=== PATIENT | female | born 1980 | race Hispanic/Latino ===

== ENCOUNTER → 2018-05-18 | Day surgery (SDC) | payer OTHER ==
--- NOTE | 2018-05-18 11:57 | RAD REPORT ---
EXAM DESCRIPTION: US - Breast Core BX w/US Guidance - 05/18/2018 10:51 am CLINICAL HISTORY: ICD R 92.8 COMPARISON: May 13, 2018 ultrasound TECHNIQUE: The risks, benefits alternatives to the procedure were explained to the patient and infor med consent obtained. Skin and subcutaneous tissues anesthetized with lidocaine. Under sonographic guidance, four 14 gauge vacuum assisted core biopsies of the mass within the outer lower left breast obtained. 2 centimeter specimens taken. Material given to pathology. Subsequently a localizing clip was placed into the mass. Patient experienced no immediate complication IMPRESSION: Vacuum assisted core biopsies of the left breast mass
== END ==
LOC: DS 09:42
PROVIDERS: ATTEND Clinical Nurse Specialist Women's Health
DX: R92.8 Other abnormal and inconclusive findings on diagnostic imaging of breast (principal)
CPT/HCPCS: 19083; 88305

== ENCOUNTER 2022-10-08 09:04 | Emergency (ER) | payer BC ==
--- OUTSIDE RECORDS SUMMARY | 2022-10-08 09:08 | XMS REPORT | Clinical Summary ---
:1980 Author Organization [facility] MD Cerda [facility] Address [address] [place] [address] Care Team Providers Name Role Phone Melani Busch MD Primary Care Provider [phone] Kimberly Neri MD Unavailable Allergies Active Allergy Reactions Severity Noted Date Comments Duzhjia-Bgi-Luv Reductase Other (See Comments) 021 Myalgia Inhibitors Medications Medication Sig Dispensed Refills Start End Date Status Date cyclobenzaprine Take 1 tablet 5 Active (FLEXERIL) 10 mg (10 mg) by 9 tablet mouth as needed. ascorbic acid, Take 1 tablet 0 A ctive vitamin C, (VITAMIN (100 mg) by C) 100 mg tablet mouth daily. polyethylene glycol Take 17 g by 0 Active (MIRALAX) 17 g mouth as packet needed. valACYclovir Take 1 tablet 0 Act jay (VALTREX) 500 mg (500 mg) by tablet mouth as needed. loratadine Take 1 tablet 0 Activ e (CLARITIN) 10 mg (10 mg) by tablet mouth daily. Repatha SureClick Inject 140 mg 0 Active 140 mg/mL pnij under the 0 skin every 14 (fourteen) days. estradiol (ESTRACE) 0 Active 0.1 mg/g (0.01%) 1 vaginal cream cholecalciferol, Take 1 0 Act jay vitamin D3, 10 mcg capsule by (400 unit) cap mouth daily. escitalopram Take 1 tablet 0 Act jay (LEXAPRO) 10 mg (10 mg) by 2 tablet mouth daily. risedronate Take 1 tablet 0 Acti ve (ACTONEL) 150 mg (150 mg) by 2 tablet mouth every 30 (thirty) days. senna-docusate Take 1 tablet 60 tablet 0 03/28/19 D iscontinued (Senokot-S) 8.6 by mouth 0 23 (The rapy mg-50 mg twice daily. complet ed) tabletIndications: BRCA1 gene mutation positive mv,Ca,min/iron/FA/gu Take by 0 03/13/19 Discontinued reich/caff mouth. 23 (Stop Anjum ing at (ONE-A-DAY WOMEN'S D ischarge) ACTIVE ORAL) raloxifene (EVISTA) TAKE 1 TABLET 0 Discontinued 60 mg tablet BY MOUTH 1 23 (Discon tinued by EVERY DAY another clinician) PARoxetine Take 1 tablet 0 03/13/19 Disco ntinued (PAXIL-CR) 12.5 mg by mouth 2 23 ( Stop Taking at 24 hr tablet daily. 5mg Discha rge) morphine (MSIR) 15 Take 0.5 12 tablet 0 03/13/19 D iscontinued mg IR tablets (7.5 2 23 (Stop T aking at tabletIndications: mg) by mouth Discharge) Chest pain, not every 8 otherwise specified (eight) hours as needed for pain or severe pain. gabapentin Take 2 0 03/12/19 Discontin ued (NEURONTIN) 100 mg capsules by 2 23 (Discontinued by capsule mouth at another bedtime. clinician) traMADol (Ultram) 50 Take 1 tablet 10 tablet 0 03/28 Discontinued mg (50 mg) by 3 23 (Therapy tabletIndications: mouth every 6 completed) Reconstructed breast (six) hours deformity as needed for moderate pain. minocycline Take 1 10 capsule 0 08/28/19 Discont inued (MINOCIN) 100 mg capsule (100 3 23 (Therapy capsuleIndications: mg) by mouth completed) Reconstructed breast twice daily. 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 06/17 Overview: Added automatically from request for willie kasper [id number] BRCA1 gene mutation positive 07/26/2018 Encounter for examination prior to antineoplastic chem otherapy 07/21/2018 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 06/15/2018 Cancer Staging: Clinical: cT2, cN0, cM0, DE-, HER2- - Signed by Melani Busch MD on 02/04/2019 Pathologic: No Stage Recommended (ypT0, pN0(sn), cM0, ER-, DE-, HER2-) - Signed by Melani Busch MD on 02/04/2019 Encounters Date Type Specialty Care Team Description 09/26/2022 Follow-Up Breast Medical [facility], Infiltrating duct carcinoma, NOS of lower-outer quadrant of breast <Female; Left> (Primary Dx); 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 BRCA1 gene muta tion positive; Estrogen recept or negative status (ER-) 09/26/2022 Travel 08/27/2022 Follow-Up Plastic Surgery Jazmine, Acquired abs ence of bilateral breasts (Primary Dx); Harley Cervantes MD Reconstructed b reast deformity 08/27/2022 Travel 03/28/2022 Follow-Up Breast [facility], Infiltrating duct carcinoma, NOS of lower-outer quadrant of breast <Female; Left> (Primary Dx); 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 Osteoporosis; Estrogen recept or negative status (ER-) 03/28/2022 Travel 03/21/2022 Office Visit Plastic Surgery Ulices Owen Reconstructe d breast A, PA deformity 03/21/2022 Travel 03/14/2022 Telephone Surgical Oncology Fatou Roque, RN 03/13/2022 Surgery Ambulatory Surgery Jazmine, REMOVAL O F BREAST Harley Cervantes MD IMPLANT 03/13/2022 Anesthesia Event Ambulatory Surgery Jose Angel Lovell MD 03/13/2022 Hospital Encounter Ambulatory Surgery Jazmine, Rec onstructed breast Harley Cervantes MD deformity (Prim bam Dx) 03/13/2022 Travel 03/12/2022 Clinical Support Ulices Contreras Encounter f or observation for other suspected exposure to biological agent ruled out (Primary Dx); A, PA Reconstructed breast deformity Ana Araujo Monica, MA 03/12/2022 Hospital Encounter Lab Ulices Owen Reconstru cted breast A, PA deformity 03/12/2022 POEM Appointments Anesthesiology Ulices Oewn Reconstr ucted breast A, PA deformity 03/12/2022 Office Visit Plastic Surgery Cesar Luceroe monica breast Harley Cervantes MD deformity 03/12/2022 Travel 03/11/2022 Anesthesia Event Anesthesiology Ambika Orr PA 11/11/2021 Orders Only Plastic Surgery Ulices Owen PA 11/08/2021 Office Visit Plastic Surgery Jazmine BRCA1 gene m utation Harley Cervantes MD positive 11/08/2021 Prep for Surgery Plastic Surgery Ulices Owen BRCA1 ge ne mutation positive (Primary Dx); A, PA Reconstructed b reast deformity 11/08/2021 Travel 10/15/2021 Orders Only Plastic Surgery Ulices Owen BRCA1 gene m utaJENNA Burdick positive (Prima ry Dx) after 10/08/2021 Surgical History Surgery Date Site/Laterality Comments EXCISION WIDE LOCAL UPPER LIMB 02/16/2002 - Right s oft tissue mass 02/15/2003 excision inright shoulder/arm, be nign PARTIAL HYSTERECTOMY 05/17/2016 - laparoscopi c 06/15/2016 hysterectomy due to fibroids 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 DE LAPAROSCOPY W/RMVL ADNEXAL 12/16/2019 Vagina /Bilateral Procedure: LAPAROSCOPY STRUCTURES WITH REMOVAL OF ADNEXAL STRUCTURES (PART IAL OR TOTAL OOPHERECTO MY AND/OR SALPINGEC IAIN; Surgeon: Jesse thakkar MD; Location: [facility]; Service: AQUA AMMONIA OPERATOR - GYNECOLOGIC ONCO LOGY DE ESOPHAGOGASTRODUODENOSCOPY US 02/21/2020 N/A Procedure: UPPER SCOPE W/ADJ STRXRS GASTROINTESTI NAL ENDOSCOPY OF ESO PHAGUS, STOMACH, OR DUOD ENUM ANDJ ADJACENT STRUCTURES, WITH ENDOSCOPIC ULTRA SOUND EXAMINATION; Willie geon: Rosanne Ornelas i, MD; Location: MAIN ENDOSCOPY; Servi ce: GASTROENTEROLOGY DE EGD TRANSORAL BIOPSY 02/21/2020 Esophagus/N/A Procedur e: UPPER SINGLE/MULTIPLE GASTROINTESTINAL ENDOSCOPY OF ESO PHAGUS, STOMACH, AND DUO DENUM WITH BIOPSY; Willie geon: Rosanne Ornelas i, MD; Location: MAIN ENDOSCOPY; Serv ice: GASTROENTEROLOGY DE REMOVAL INTACT BREAST IMPLANT 03/13/2022 Breast/Bilatera l Procedure: REMOVAL OF BREAST IMPLANT; Surgeon: Harley Lucero MD; Loca tion: [facility]; Service : PLS - PLASTIC SURGERY Medical devices from this surgery are in the Medical Devices section. DE BREAST AUGMENTATION WITH 03/13/2022 Breast/Bilateral Pro cedure: placement of IMPLANT implant; Surgeon : Harley Lucero MD; Location: O R; Service: PLS - P LASTIC SURGERY Medical devices from this surgery are in the Medical Devices section. Medical History Medical History Date Comments Hyperlipidemia 2010 Tooth disorder 7 years ago periodontal Disease Genital herpes simplex 2011 Uterine leiomyoma 2015 s/p hysterectomy BRCA1 gene mutation positive Family History Medical History Relation Name Comments Breast cancer Maternal Aunt 1 Virginie Rivers Genetic Susceptibility to Maternal Aunt 1 Virginie Rivers BRCA1 positive Breast Cancer Breast cancer Maternal Aunt 2 Jocelyn Tinoco Genetic Susceptibility to Maternal Aunt 2 Jocelyn Tinoco BRCA1 positive Breast Cancer Breast cancer Maternal Aunt 3 Phyllis Zamanarado Pancreatic cancer Maternal Aunt 4 Zully Castro Ovarian cancer Maternal Grandmother India Paniagual Ovarian cancer Mother Shazia Duke Cancer Paternal Grandfather unknown typ e, possible prostat e Relation Name Status Comments Father Alive Maternal Aunt 1 Virginie Rivers Alive Maternal Aunt 2 Jocelyn Tinoco Alive Maternal Aunt 3 Phyllis Josue Alive Maternal Aunt 4 Zully Castro Alive Maternal Aunt 5 Alive Maternal Aunt 6 Alive Maternal Cousin 1 Alive Maternal Cousin 2 Alive Maternal Cousin 3 Alive Maternal Cousin 4 Alive Maternal Cousin 5 Alive Maternal Cousin 6 Alive Maternal Cousin 7 Alive Maternal Cousin 8 Alive Maternal Grandfather (Age 80) Maternal Grandmother India Tinoco (Age 78) Maternal Uncle 1 Alive Maternal Uncle 2 Alive Maternal Uncle 3 Alive Mother Shazia Duke (Age 61) Nephew 1 Alive Nephew 2 Alive Niece Alive Paternal Aunt Alive 4 Paternal Cousin 1 Alive Paternal Cousin 2 Alive Paternal Grandfather (Age 50) Paternal Grandmother (Age 70) Paternal Uncle Alive 3 Sister 1 Alive no children Sister 2 Alive Son Alive no children Social History Tobacco Use Types Packs/Day Years Used Date Smoking Tobacco: Never Smokeless Tobacco: Never Alcohol Use Standard Drinks/Week Comments Yes 0 (1 standard drink = 0.6 oz pure I only drink on wknds, alcohol) occasionally. Not ev haily wknd Sex Assigned at Date Recorded Female 08/05/2018 9:42 AM CDT Job Start Date Occupation Industry Not on file Not on file Not on file Obstetrics History Para Term AB IAB SAB Ectopic Multiple Living Live Births 2 1 1 Date Outcome GA Total Labor/2nd/3rd Weight Sex Delivery Anes PTL Opal A 1 A5 Name Clin Labor Para AB Comments Menarche age 10 Last menstrual period 2017 - JENISE with in tact ovaries Parity age 16 A1 Denies breast feeding, OCP, HRT Last Filed Vital Signs Vital Sign Reading Time Taken Comments Blood Pressure 109/74 09/26/2022 12:59 PM CDT Pulse 84 09/26/2022 12:59 PM CDT Temperature 36.8 C (98.2 F) 09/26/2022 12:59 PM CDT Respiratory Rate 18 09/26/2022 12:59 PM CDT Oxygen Saturation 95% 09/26/2022 12:59 PM CDT Inhaled Oxygen Concentration - - Weight 67.3 kg (148 lb 5.9 oz) 09/26/2022 12:59 PM CDT Height - - Body Mass Index 25.8 03/28/2019 8:30 AM IT OPERATIONS ANALYST Plan of Treatment Date Type Specialty Care Team Description 03/27/2023 Follow-Up Breast Medical Oncology Kinney, Sadia bustos, LOGGING EQUIPMENT MECHANIC [address], [place] [address] (Wo rk) 06/16/2023 Clinical Support Plastic Surgery Ulices Owen, PA [address] [place] [address] Latanya Robert, RN [address], [place] Health Maintenance Due Date Last Done Comments COVID-19 Vaccination (#1) 07/01/1979 Medical Devices Implanted Type Area Chain Maker Machine Device Shelf Model / Identifier Expiration Serial / Date Lot Breast Implant Scf-485 - [id number] Breast Left: ALLERGAN [place], 06/16/2026 SCF- 485 / Implanted: Qty: 1 on 03/13/2022 by Harley Lucero MD at [facility] Breast [employer]. [id number] / [id number] Explanted Type Area Chain Maker Machine Device Identifier Shelf Model / Expiration Serial / Date Lot Breast Implant Scf-385 - [id number] Breast Right: ALLERGAN [place] , [id number] 10/17/2022 SCF-385 / Implanted: Qty: 1 on 08/01/2019 by Harley Lucero MD at [facility] Breast [employer]. [id number] / Explanted: Qty: 1 on 03/13/2022 by Harley Lucero MD [id number] Procedures Procedure Name Priority Date/Time Associated Diagnosis Comme nts PATHOLOGY SURGICAL Routine 03/13/2022 7:32 Reconstructed breas t Results for this INTERPRETATION AM IT OPERATIONS ANALYST deformity procedure are in the results section. AUGMENTATION 03/13/2022 6:30 Reconstructed breast MAMMOPLASTY WITH AM IT OPERATIONS ANALYST deformity PROSTHETIC IMPLANT Special Needs VS 530 [facility] / 1x FM60 to 75 minutes for plastics. REMOVAL OF BREAST IMPLANT 03/13/2022 6:30 AM IT OPERATIONS ANALYST Reconstructed breast deformity Special Needs VS 530 [facility] / 1x FM60 to 75 minutes for plastics. COVID-19 (SARS-COV-2) Routine 03/12/2022 11:31 Encounter for R esults for this PCR - ASYMPTOMATIC - MC AM IT OPERATIONS ANALYST observation for p rocedure are in other suspected the results exposure to section. biological agent ruled out FRACTIONATED BILIRUBIN Routine 03/12/2022 11:24 Reconstructed breast Results for this AM IT OPERATIONS ANALYST deformity procedure are i n the results section. TOTAL PROTEIN Routine 03/12/2022 11:24 Reconstructed breast Re sults for this AM IT OPERATIONS ANALYST deformity procedure are i n the results section. ASPARTATE Routine 03/12/2022 11:24 Reconstructed breast Res ults for this AMINOTRANSFERASE AM IT OPERATIONS ANALYST deformity procedure a re in the results section. ALANINE AMINOTRANSFERASE Routine 03/12/2022 11:24 Reconstructe d breast Results for this AM IT OPERATIONS ANALYST deformity procedure are i n the results section. ALKALINE PHOSPHATASE Routine 03/12/2022 11:24 Reconstructed br east Results for this AM IT OPERATIONS ANALYST deformity procedure are i n the results section. ALBUMIN LEVEL Routine 03/12/2022 11:24 Reconstructed breast Re sults for this AM IT OPERATIONS ANALYST deformity procedure are i n the results section. CALCIUM LEVEL TOTAL Routine 03/12/2022 11:24 Reconstructed bing ast Results for this AM IT OPERATIONS ANALYST deformity procedure are i n the results section. .GLOMERULAR FILTRATION Routine 03/12/2022 11:24 Reconstructed breast Results for this RATE AM IT OPERATIONS ANALYST deformity procedure are i n the results section. SERUM CREATININE Routine 03/12/2022 11:24 Reconstructed breast Results for this AM IT OPERATIONS ANALYST deformity procedure are i n the results section. ELECTROLYTE PANEL Routine 03/12/2022 11:24 Reconstructed breas t Results for this AM IT OPERATIONS ANALYST deformity procedure are i n the results section. BLOOD UREA NITROGEN Routine 03/12/2022 11:24 Reconstructed bing ast Results for this AM IT OPERATIONS ANALYST deformity procedure are i n the results section. GLUCOSE LEVEL Routine 03/12/2022 11:24 Reconstructed breast Re sults for this AM IT OPERATIONS ANALYST deformity procedure are i n the results section. MANUAL DIFFERENTIAL Routine 03/12/2022 11:24 Reconstructed bing ast Results for this AM IT OPERATIONS ANALYST deformity procedure are i n the results section. Results CBC Routine 03/12/2022 11:24 Reconstructed breast Res ults for this AM IT OPERATIONS ANALYST deformity procedure are i n the results section. HEMOGLOBIN A1C Routine 03/12/2022 11:24 Reconstructed breast R esults for this AM IT OPERATIONS ANALYST deformity procedure are i n the results section. COMPREHENSIVE METABOLIC Routine 03/12/2022 11:24 Reconstructed breast PANEL AM IT OPERATIONS ANALYST deformity COMPLETE BLOOD COUNT W/ Routine 03/12/2022 11:24 Reconstructed breast DIFFERENTIAL AM IT OPERATIONS ANALYST deformity after 10/08/2021 Results Pathology Surgical Interpretation (03/13/2022 7:32 AM IT OPERATIONS ANALYST) Component Value Ref Test Analysis Performed Pathologis t Range Method Time At Signature Submitted Reconstructed 03/14/2022 [facility] Clinical breast deformity 12:07 PM History [N65.0] IT OPERATIONS ANALYST Diagnosis A. Right breast, mastectomy skin scar, excision: 03/14/2022 [facility] Electronically No evidence of malignancy. 12:07 PM signed by Kathie Skin with scar and underlyin g fibroconnective tissue consistent with implant capsule. IT OPERATIONS ANALYST MD vivian Cuellar n B. Left breast, mastectomy skin scar, excision: 03/14/2022 at Skin with scar, no tumor present. 12:06 PM C. 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 D. Right breast, implant, removal: Implant (biomedical engineering supervisor), gross diagnosis only. Gross A: 03/14/2022 [facility] Description Breast, right, mastectomy sk in scar - permanent: A 5.4 x 1.2 x 0.4 cm portion of to, grossly unremarkable, unoriented skin with underlying capsule. No masses or lesions are identified grossly. Represen 12:07 PM tative sections are submitted in cassette A1. JLA IT OPERATIONS ANALYST Cold Ischemia and Fixation Times Meet requirements specified in latest version of the ASCO/CA P guidelines Cold ischemia time: 34m 52s Fixative: 10% Neutral Buffered Formalin In fixative: 03/13/2022 8:06 AM Fixation time: > 6 hours and < 72 hours B: Breast, left, mastectomy ski n scar - permanent: A 3.5 x 0.4 x 0.2 cm portion of to, unoriented, grossly unremarkable skin. The specimen is bisected and entirely submitted in cassette B1. JLA Cold Ischemia and Fixation Times Meet requirements specified in latest version of the ASCO/CA P guidelines Cold ischemia time: 33m 58s Fixative: 10% Neutral Buffered Formalin In fixative: 03/13/2022 8:06 AM Fixation time: > 6 hours and < 72 hours C: Breast, left, implant, - lashell ss id only: A 13.0 x 13.0 x 4.5 cm ovoid, semitranslucent implant with a smooth dry surface and viscous translucent contents. The inscription is style SCF LOT [id number] Allerga n 385 cc. No gross ruptures or adherent tissue, is identified grossly. Photographs are taken. Gross only. JLA D: Breast, right breast implant - gross id only: A 13.0 x 13.0 x 4.5 cm ovoid, semitranslucent implant with a smooth dry surface and viscous translucent contents. The inscription is style SCF LOT [id number] A llergan 385 cc. No gross rup tures or adherent tissue, is identified grossly. Photographs are taken. Gross only. JLA Biomarker N/A 03/14/2022 [facility] Block(s) 12:07 PM IT OPERATIONS ANALYST Disclaimer "Some tests 03/14/2022 [facility] reported here may 12:07 PM have been IT OPERATIONS ANALYST developed and performance characteristics determined by [facility] Pathology and Laboratory Medicine. These tests have not been specifically cleared or approved by the U.S. Food and Drug Administration. If applicable, controls were reviewed and showed appropriate reactivity." Specimen Anatomical Collection Method Collection Time Receive d Time (Source) Location / / Volume Laterality Tissue (Breast, 03/13/2022 7:32 AM 2022 8:06 Right) IT OPERATIONS ANALYST AM IT OPERATIONS ANALYST Tissue (Breast, 03/13/2022 7:33 AM 2022 8:06 Left) IT OPERATIONS ANALYST AM IT OPERATIONS ANALYST Tissue (Breast, 03/13/2022 7:59 AM 2022 8:06 Left, Implant) IT OPERATIONS ANALYST AM IT OPERATIONS ANALYST Tissue (Breast, 03/13/2022 8:00 AM 2022 8:06 Right, Implant) IT OPERATIONS ANALYST AM IT OPERATIONS ANALYST Harley Lucero MD LAB PATHOLOGY ORDERABLES Performing Organization Address City/State/ZIP Code Phon e Number [facility] [place] [address] [address] COVID-19 (SARS-CoV-2) PCR-Asymptomatic [facility] (03/12/2022 11:31 AM IT OPERATIONS ANALYST) [facility] Method Time Signature COVID19 (SARS Not Detected Not Detected [place] CoV-2) [facility] Comment: This test is a qualitative reverse-trans criptase polymerase chain reaction (RT- PCR) developed for the Robina DOUG 6800 system and intended for qualitative detection of SARS CoV-2 RNA in nasopharyngeal a nd oropharyngeal swab specimens collecte d from any individuals, including those suspected o f COVID-19 by their healthcare provider, and those without symptoms or other reasons to suspect COVID-19. A fact sheet for patients provided by the cat skinner ( [employer]) can be rev iewed at: https://www.fda.gov/media/849199/leticia dooley A fact sheet for Health Care providers is provided by the cat skinner ([employer]) and can be reviewed at: https://www.fda.gov/media/236413/download Results must be interpreted within the c ontext of all relevant clinical and laboratory findings and should not form the sole basis for a diagnosis or treatment decision. Positive results do not rule out bacterial infection or co- infection with other viruses. Negative results do not rule ou t SARS-CoV-2 and must be combined with clinical observations, patient history, and/or epidemiological information. "Presumptive Positive" results are due t o partial amplification of SARS-CoV-2 targets and indicates low amounts of virus present in the specimen at or near the limit of detection. Regardless, individuals with "Presumptive Positive" results should be managed per institutional guidelines as individuals positive for SARS-CoV-2 virus, including use of appropriate infection control protocols. Internal controls are included to assess for possible amplification inhibitors. If inhibition is detected, testing is repeated and if inhibition is confirmed the specimen is resulted as "Invalid". When an "Invalid" result occurs, it is recomm ended to wait 3 days before submitting a new spec imen for testing if clinically indicated. This assay has been approved by the FDA for use only under Emergency Use Authorization (EUA) in laboratories that have been CLIA-certified to perform moderate-complexity and high-complexity tests. The performance characteristics of this assay were verified by the Microbiology Laboratory at [facility], CLIA Accreditation #: [id number] and CAP Accreditation #: [id number]. COVID19 SARS Source PROOF MACHINE OPERATOR Swab [place] MD [facility] COVID19 SARS Indication Pre-OR Procedure [facility] Specimen (Source) Anatomical Collection Method Collection Time Re ceived Time Location / / Volume Laterality Nasopharyngeal Swab 03/12/2022 11:31 02/17 AM IT OPERATIONS ANALYST 3:33 PM IT OPERATIONS ANALYST Harley Lucero MD MICROBIOLOGY - GENERAL ORDER MARIA Performing Organization Address City/State/ZIP Code Phon e Number [facility] Unless otherwise noted, [place] [address] [place] all lab tests performed by: Division of Pathology and Laboratory Medicine [address] [place] [address] .Serum Creatinine (03/12/2022 11:24 AM IT OPERATIONS ANALYST) athologist Signature Creatinine 0.68 0.51 - 0.95 [facility] mg/dL Comment: [facility] Performed [facility] [address], [address], [place] [address] Specimen Anatomical Collection Method Collection Time Receive d Time (Source) Location / / Volume Laterality Blood 03/12/2022 11:24 03/12/2022 AM IT OPERATIONS ANALYST 11:52 AM IT OPERATIONS ANALYST [facility]es [facility] BLOOD ORDERABLES Performing Organization Address City/State/ZIP Code Phon e Number [address] [place] [address] [address] (ABNORMAL) .CBC (03/12/2022 11:24 AM IT OPERATIONS ANALYST) athologist Signature WBC 5.3 4.0 - 11.0 [facility] K/uL RBC 5.25 4.00 - 5.50 [facility] M/uL Hgb 13.4 12.0 - 16.0 [facility] gm/dL Comment: As part of CBC or as an individ ual orderable testing performed at [facility], [facility] , [address], [place] [address] Hct 43.1 37.0 - 47.0 % [facility] Comment: As part of CBC or as an individ ual orderable testing performed at [facility], [address] , [address], [place] [address] MCV 82 82 - 98 fL [facility] MCH 25.5 (L) 27.0 - 31.0 pg [facility] MCHC 31.1 31.0 - 36.0 gm/dL [facility] RDW-SD 43.3 35.1 - 46.3 fL [facility] RDW-CV 14.6 12.0 - 15.5 % [facility] Platelet count 218 140 - 440 K/uL [facility] Comment: As part of CBC or as an individ ual orderable testing performed at [facility], [address] [facility] , [address], [place] [address] MPV 12.1 (H) 4.0 - 10.4 fL [facility] INRBC 0.0 <=0.0 % [facility] Comment: The INRBC (instrument NRBC) value reflec ts the enumeration of nucleated red blood cells contained i n a 200uL sample of whole blood analyzed by the instrumen t. This value may differ from the NRBC value reported in a manual differential, which is based on a 100 cell differentia l. As part of CBC testing performed at [facility] [employer] [facility] [address] [facility], [address], [place] [address] Specimen Anatomical Collection Method Collection Time Receive d Time (Source) Location / / Volume Laterality Blood 03/12/2022 11:24 03/12/2022 AM IT OPERATIONS ANALYST 11:28 AM IT OPERATIONS ANALYST [facility] BLOOD ORDERABLES Performing Organization Address City/State/ZIP Code Phon e Number [address] [place] [address] [address] Glomerular Filtration Rate (03/12/2022 11:24 AM IT OPERATIONS ANALYST) P athologist Signature eGFR 111 >=60 [facility] mL/min/1.73 sq. m Comment: The eGFRcr is calculated with the 2020 KD-EPI creatinine equation using creatinine, patient's age, and sex for adults 18 years of age and older. Other factors, especially muscle mass, may affect accuracy and need to be considered. According to the Kidney Disease: Improvi ng Global Outcomes (KDIGO) CKD Work Group 2012 Clinical Practice Guideline, chronic kidney disease (CKD) is defined as the abnormalities of kidney structure or function, present for more than 3 months, with implications for health. CKD should be c lassified by cause, GFR category, and albuminuria category. KDIGO guidelines provide the following GFR categories Stage Description GFR mL/min/1.73 m2 G1* Normal or high >= 90 G2* Mildly decreased 60-89 G3a Mildly to moderately decreased 45-59 G3b Moderately to severely decreased 30- 44 G4 Severely decreased 15-29 G5 Kidney failure <15 *In the absence of evidence of kidney da mage, neither G1 nor G2 fulfill criteria for CKD. Testing Performed at [facility], [address] [facility] [address], [address], [place] [address] Specimen Anatomical Collection Method Collection Time Receive d Time (Source) Location / / Volume Laterality Blood 03/12/2022 11:24 03/12/2022 AM IT OPERATIONS ANALYST 11:52 AM IT OPERATIONS ANALYST [facility] BLOOD ORDERABLES Performing Organization Address [facility]/ZIP Code Phon e Number [facility] [address] [facility] [place] [address] [address] Fractionated Bilirubin (03/12/2022 11:24 AM IT OPERATIONS ANALYST) athologist Signature Bili Total 0.3 <=1.2 mg/dL [facility] Comment: Indocyanine Green (ICG) may cause falsel y elevated bilirubin results. Total and direct bilirubin must not be measured from samples containing indocyanine green. False elevation of total bilirubin can b e seen in patients with IgG concentrations above 28 g/L. Testing Performed at [facility], [address] [place] [address], [address], [place] [address] Bili Direct <0.2 <=0.3 mg/dL [facility] Comment: Indocyanine Green (ICG) may cause falsel y elevated bilirubin results. Total and direct bilirubin must not be measured from samples containing indocyanine green. Testing Performed at [facility], [facility] [facility], [address], [place] [address] Bili Indirect See Note 0.0 - 0.9 mg/dL [facility] Comment: Unable to calculate Indirect Bilirubin r esult due to some parameters are outside reportable range Testing Performed at [facility], [address] [facility], [address], [place] [address] Specimen Anatomical Collection Method Collection Time Receive d Time (Source) Location / / Volume Laterality Blood 03/12/2022 11:24 03/12/2022 AM IT OPERATIONS ANALYST 11:52 AM IT OPERATIONS ANALYST [facility] BLOOD ORDERABLES Performing Organization Address [facility]/ZIP Code Phon e Number [facility] [address] [facility] [place] [address] [address] (ABNORMAL) Differential (03/12/2022 11:24 AM IT OPERATIONS ANALYST) athologist Signature Neutrophil % 60.0 42.0 - 66.0 [facility] % Comment: As part of Differential perform ed at [facility], [address] [place] [address], [address], [place] [address] Lymphocyte % 29.1 24.0 - 44.0 % [facility] Monocyte % 7.4 (H) 2.0 - 7.0 % [facility] Eosinophil % 1.9 1.0 - 4.0 % [facility] Basophil % 1.0 0.0 - 1.0 % [facility] IGRE % 0.6 (H) 0.0 - 0.4 % [facility] Comment: IGRE % count includes Metamyelocytes, My elocytes, and Promyelocytes. As part of Differential performed at [facility], [address] [place] [address], [address], [place] [address] Neutrophil Abs 3.15 1.70 - 7.30 K/uL [facility] Lymphocyte Abs 1.53 1.00 - 4.80 K/uL [facility] Monocyte Abs 0.39 0.08 - 0.70 K/uL [facility] Eosinophil Abs 0.10 0.04 - 0.40 K/uL [facility] Basophil Abs 0.05 0.00 - 0.10 K/uL [facility] IG Abs 0.03 0.00 - 0.04 K/uL [facility] Specimen Anatomical Collection Method Collection Time Receive d Time (Source) Location / / Volume Laterality Blood 03/12/2022 11:24 03/12/2022 AM IT OPERATIONS ANALYST 11:28 AM IT OPERATIONS ANALYST [facility] BLOOD ORDERABLES Performing Organization Address City/[facility]/ZIP Code [facility] e Number [address] [place] [address] [address] BUN (03/12/2022 11:24 AM IT OPERATIONS ANALYST) P athologist Signature BUN 13 6 - 23 mg/dL [facility] Comment: Testing Performed at [facility], [address] [place] [address], [address], [place] [address] Specimen Anatomical Collection Method Collection Time Receive d Time (Source) Location / / Volume Laterality Blood 03/12/2022 11:24 03/12/2022 AM IT OPERATIONS ANALYST 11:52 AM IT OPERATIONS ANALYST [facility] BLOOD ORDERABLES Performing Organization Address City/[facility]/ZIP Code Phon e Number [address] [place] [address] [address] ALT (03/12/2022 11:24 AM IT OPERATIONS ANALYST) athologist Signature ALT 25 <=33 U/L [facility] Comment: Testing Performed at [facility], [address] [facility] [address], [address], [place] [address] Specimen Anatomical Collection Method Collection Time Receive d Time (Source) Location / / Volume Laterality Blood 03/12/2022 11:24 03/12/2022 AM IT OPERATIONS ANALYST 11:52 AM IT OPERATIONS ANALYST Ulices Owen PA LAB BLOOD ORDERABLES Performing Organization Address City/[facility]/ZIP Code Phon e Number [facility] [address] [facility] [place] [address] [address] Aspartate Aminotransferase (03/12/2022 11:24 AM IT OPERATIONS ANALYST) athologist Signature AST 24 <=32 U/L [facility] Comment: Testing Performed at [facility], [address] [facility], [address], [place] [address] Specimen Anatomical Collection Method Collection Time Receive d Time (Source) Location / / Volume Laterality Blood 03/12/2022 11:24 03/12/2022 AM IT OPERATIONS ANALYST 11:52 AM IT OPERATIONS ANALYST Ulices Owen PA LAB BLOOD ORDERABLES Performing Organization Address [facility]/ZIP Code Phon e Number [facility] [address] [facility] [place] [address] [address] Total Protein (03/12/2022 11:24 AM IT OPERATIONS ANALYST) athologist Signature Total Protein 8.2 6.4 - 8.3 [facility] g/dL Comment: Testing Performed at [facility], [address] [facility], [address], [place] [address] Specimen Anatomical Collection Method Collection Time Receive d Time (Source) Location / / Volume Laterality Blood 03/12/2022 11:24 03/12/2022 AM IT OPERATIONS ANALYST 11:52 AM IT OPERATIONS ANALYST Ulices Owen PA LAB BLOOD ORDERABLES Performing Organization Address City/[facility]/ZIP Code Phon e Number [facility] [address] [facility] [place] [address] [address] (ABNORMAL) Alkaline Phosphatase (03/12/2022 11:24 AM IT OPERATIONS ANALYST) athologist Signature Alk Phos 120 (H) 35 - 104 [facility] U/L Comment: Testing Performed at [facility], [address] [place] [address], [address], [place] [address] Specimen Anatomical Collection Method Collection Time Receive d Time (Source) Location / / Volume Laterality Blood 03/12/2022 11:24 03/12/2022 AM IT OPERATIONS ANALYST 11:52 AM IT OPERATIONS ANALYST [facility] BLOOD ORDERABLES Performing Organization Address City/State/ZIP Code Phon e Number [facility] [address] [place] [address]. [place] [address] [address] (ABNORMAL) Hemoglobin A1c (03/12/2022 11:24 AM IT OPERATIONS ANALYST) athologist Signature A1C 5.8 (H) 4.3 - 5.6 % [facility] Comment: HbA1c values >=6.5% are diagnostic of di abetes mellitus. Diagnosis should be confirmed by repeat testing. Therapeutic Action suggested: >8.0% HbA1 c; Goal of therapy: <7.0% HbA1c Specimen Anatomical Collection Method Collection Time Receive d Time (Source) Location / / Volume Laterality Blood 03/12/2022 11:24 03/12/2022 AM IT OPERATIONS ANALYST 12:06 PM IT OPERATIONS ANALYST [facility] BLOOD ORDERABLES Performing Organization Address City/State/ZIP Code Phon e Number [facility] Unless otherwise noted, [place] [address] CENTER all lab tests performed by: Division of Pathology and Laboratory Medicine [address] [place] [address] Glucose Level (03/12/2022 11:24 AM IT OPERATIONS ANALYST) athologist Signature Glucose Level 99 70 - 99 [facility] mg/dL Comment: Effective 09/12/15, the glucose reference intervals have been updated based on [place] [employer] guidelines (Standards of Medical Care in Diabetes 2016. Diabetes Care 2016; 39: S13-S22). Fasting blood glucose: Normal: 70-99 mg/dL Impaired fasting glucose (increased risk for diabetes or pre-diabetes): 100- 125 mg/dL Diabetes mellitus: >/=126 mg/dL Random blood glucose: Normal: 70-199 mg/dL Note: Random glucose >100 mg/dL is assoc iated with increased risk for diabetes Testing Performed at [facility] [employer] [facility], [address] [facility], [address], [place] [address] Specimen Anatomical Collection Method Collection Time Receive d Time (Source) Location / / Volume Laterality Blood 03/12/2022 11:24 03/12/2022 AM IT OPERATIONS ANALYST 11:52 AM IT OPERATIONS ANALYST Ulices Owen PA LAB BLOOD ORDERABLES Performing Organization Address City/[facility]/ZIP Code Phon e Number [facility] [address] [facility] [place] [address] [address] Calcium Level (03/12/2022 11:24 AM IT OPERATIONS ANALYST) P athologist Signature Calcium Lvl 10.2 8.4 - 10.2 [facility] mg/dL Comment: Testing Performed at [facility], [address] [facility], [address], [place] [address] Specimen Anatomical Collection Method Collection Time Receive d Time (Source) Location / / Volume Laterality Blood 03/12/2022 11:24 03/12/2022 AM IT OPERATIONS ANALYST 11:52 AM IT OPERATIONS ANALYST Ulices Owen PA LAB BLOOD ORDERABLES Performing Organization Address [facility]/ZIP Code Phon e Number [facility] [address] [facility] [place] [address] [address] Albumin Level (03/12/2022 11:24 AM IT OPERATIONS ANALYST) P athologist Signature Albumin Lvl 4.9 3.5 - 5.2 [facility] gm/dL Comment: Testing Performed at [facility], [address] [facility], [address], [place] [id number] Specimen Anatomical Collection Method Collection Time Receive d Time (Source) Location / / Volume Laterality Blood 03/12/2022 11:24 03/12/2022 AM IT OPERATIONS ANALYST 11:52 AM IT OPERATIONS ANALYST Ulices Owen PA LAB BLOOD ORDERABLES Performing Organization Address City/[facility]/ZIP Code Phon e Number [facility] [address] [facility] [place] [address] [address] Electrolyte Panel (03/12/2022 11:24 AM IT OPERATIONS ANALYST) P athologist Signature Sodium Lvl 141 136 - 145 [facility] mEq/L Comment: Testing Performed at [facility], [address], [address], [place] [address] Potassium Lvl 3.9 3.5 - 5.1 mEq/L [facility] Comment: Testing Performed at [facility], [address], [address], [place] [address] Chloride 101 98 - 107 mEq/L [facility] Comment: Testing Performed at [facility], [address], [address], [place] [address] CO2 29 22 - 29 mEq/L [facility] Comment: Testing Performed at [facility], [address], [address], [place] [address] Anion Gap 11 4 - 14 mEq/L [facility] Comment: Testing Performed at [facility], [address], [address], [place] [address] Specimen Anatomical Collection Method Collection Time Receive d Time (Source) Location / / Volume Laterality Blood 03/12/2022 11:24 03/12/2022 AM IT OPERATIONS ANALYST 11:52 AM IT OPERATIONS ANALYST [facility] BLOOD ORDERABLES Performing Organization Address City/State/ZIP Code Phon e Number [facility] [address] 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
--- OUTSIDE RECORDS SUMMARY | 2022-10-08 09:10 | XMS REPORT | Continuity of Care Document ---
:1980 Author Organization [facility] t Address [address] [facility] [address] [place] [id number] Care Team Providers Name Role Phone Jose Yeager MD, Thomas Richard Primary Care Physician [phone] SYSTEM, PROVIDER NOT IN Attending Clinician Unavailable KinneyMel garcia APRN Attending Clinician MEL KINNEY Attending Clinician Unavailable Harley Lucero MD Attending Clinician HARLEY LUCERO Attending Clinician Unavailable Ulices Cardoso Attending Clinician ULICES CAR Attending Clinician Unavailable Fatou Roque RN Attending Clinician Unavailable Jose Angel Lovell MD Attending Clinician Ana Araujo MA Attending Clinician Unavailable Ambika Fagan Attending Clinician ISADORA CHAUDHRY Attending Clinician Unavailable NORM VARGAS Attending Clinician Unavailable DIANA TERRY Attending Clinician Unavailable DIANA GARCIA Attending Clinician Unavailable NIKO LLOYD Attending Clinician Unavailable KING KARIMI Attending Clinician Unavailable ARCELIA NOLASCO Attending Clinician Unavailable ABDIRASHID PERSAUD Attending Clinician Unavailable HARLEY LUCERO Admitting Clinician Unavailable Payers Payer Name Policy Type Policy Number Effective Date Expiration Date Jeffrey [facility] [id number] 2020 00:00:00 CAITLYN O POS [id number] 2018 00:00:00 OPEN ACCESS Problems Condition Condition Condition Status Onset Resolution Last Treating Co mments Source Name Details Category Date Date Treatment Clinician Date Reconstruc Reconstruc Disease Active Overview : Univers jt breast jt breast 11-08 Formattin ity of deformity deformity 00:00: [place] 00 note MD might be Anders[place] different n from the Cancer original. Center Added automatic ally from request for surgery [id number] Chronic Chronic Disease Active 2020-[address] [facility] low back low back 0-04 [facility] pain pain 00:00: Medical without without 00 Center sciatica, sciatica, unspecifie unspecifie d back d back pain pain laterality laterality Chronic Chronic Disease Active 2020-[address] [facility] right right 0-04 [facility] shoulder shoulder 00:00: Medica l pain pain 00 Center Chronic Chronic Disease Active 2020-[address] [facility] left left 0-04 [facility] shoulder shoulder 00:00: Medica l pain pain 00 Center Limited Limited Disease Active 2020-[address] [facility] range of range of 0-04 [facility] motion motion 00:00: Medical (ROM) of (ROM) of 00 Center shoulder shoulder Hot Hot Disease Active 2020-[address] [facility] flashes flashes 0-04 [facility] 00:00: Medical 00 Center Osteoporos Osteoporos Disease Active 2020-[address] is, is, 0-04 [facility] unspecifie unspecifie 00:00: Me dical d d 00 Center osteoporos osteoporos is type, is type, unspecifie unspecifie d d pathologic pathologic al al fracture fracture presence presence History of History of Disease Active 2020-[address] breast breast 0-04 [facility] cancer cancer 00:00: Medical 00 Center History of History of Disease Active 2020-[address] bilateral bilateral 0-04 [facility] s mastectomy mastectomy 00:00: Me dical 00 Center BRCA BRCA Disease Active 2020-[address] [facility] positive positive 0-04 [facility] 00:00: Medical 00 Center Pain in Pain in Disease Active 2020-[address] [facility] both lower both lower 0-04 Bhargavi kes extremitie extremitie 00:00: Me dical s s 00 Center S/P S/P Disease Active 2020-[address] [facility] JENISE-BSO JENISE-BSO 0-04 [facility] 00:[facility]: Medical 00 Center Screening Screening Disease Active 2020-[address] [facility] for for 0-04 [facility] depression depression 00:00: Me dical 00 Center Mixed Mixed Disease Active 2020-[address] [facility] hyperlipid hyperlipid 0-04 Bhargavi kes emia emia 00:00: Medical 00 Center Genetic Genetic Disease Active 2019-02 Univers susceptibi susceptibi 0-05 it y of lity to lity to 00:00: [place] other other 00 MD malignant malignant [place] neoplasm neoplasm n Cancer Center Family Family Disease Active 2019-02 Univers history of history of 0-05 [place] of malignant malignant [place] 00 of of [place] pancreas pancreas n Cancer Center 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 Center Added automatic ally from request for surgery [id number] BRCA1 gene BRCA1 gene Disease Active U nivers mutation mutation 6-10 ity of positive positive 00:00: [place] 00 MD [facility] Encounter Encounter Disease Active Uni vers for for 6-05 ity of examinatio examin[place] prior to n prior to 00 antineopla antineopla An derso stic stic n chemothera chemothera Ca ncer py py Center Infiltrati Infiltrati Disease Active U nivers ng duct ng duct 4-30 ity of carcinoma carcinoma 00[place]00[place] of lower of lower 00 outer outer Anderso quadrant quadrant n of left of left Cancer female female Center breast breast Allergies, Adverse Reactions, Alerts Allergy Allergy Status Severity Reaction(s) Onset Inactive Treating Comm ents Source Name Type Date Date Clinician STATINS- Drug Active Other 2020-02 MD [facility]G-COA Class 0-04 Anderso REDUCTAS 00:00: n E 00 INHIBITO RS STATINS- Drug Active Other 2020-02 MD [facility]G-COA Class 0-04 Anderso REDUCTAS 00:00: n E 00 INHIBITO RS STATINS- Drug Active Other 2020-02 MD [facility]G-COA Class 0-04 Anderso REDUCTAS 00:00: n E 00 INHIBITO RS STATINS- Drug Active Other 2020-02 MD HMG-COA Class 0-04 Anderso REDUCTAS 00:00: n E 00 INHIBITO RS STATINS- Drug Active Other 2020-02 MD HMG-COA Class 0-04 Anderso REDUCTAS 00:00: n E 00 INHIBITO RS STATINS- Drug Active Other 2020-02 MD [facility]G-COA Class 0-04 Anderso REDUCTAS 00:00: n E 00 INHIBITO RS STATINS- Drug Active Other 2020-02 MD HMG-COA Class 0-04 Anderso REDUCTAS 00:00: n E 00 INHIBITO RS STATINS- Drug Active Other 2020-02 MD HMG-COA Class 0-04 Anderso REDUCTAS 00:00: n E 00 INHIBITO RS STATINS- Drug Active Other 2020-02 MD HMG-COA Class 0-04 Anderso REDUCTAS 00:00: n E 00 INHIBITO RS STATINS- Drug Active Other 2020-02 MD HMG-COA Class 0-04 Anderso REDUCTAS 00:00: n E 00 INHIBITO RS STATINS- Drug Active Other 2020-02 MD HMG-COA Class 0-04 Anderso REDUCTAS 00:00: n E 00 INHIBITO RS STATINS- Drug Active Other 2020-02 MD [facility]G-COA Class 0-04 Anderso REDUCTAS 00:00: n E 00 INHIBITO RS STATINS- Drug Active Other 2020-02 MD HMG-COA Class 0-04 Anderso REDUCTAS 00:00: n E 00 INHIBITO RS STATINS- Drug Active Other 2020-02 MD HMG-COA Class 0-04 Anderso REDUCTAS 00:00: n E 00 INHIBITO RS STATINS- Drug Active Other 2020-02 MD HMG-COA Class 0-04 Anderso REDUCTAS 00:00: n E 00 INHIBITO RS STATINS- Drug Active Other 2020-02 MD HMG-COA Class 0-04 Anderso REDUCTAS 00:00: n E 00 INHIBITO RS STATINS- Drug Active Other 2020-02 MD HMG-COA Class 0-04 Anderso REDUCTAS 00:00: n E 00 INHIBITO RS STATINS- Drug Active Other 2020-02 MD HMG-COA Class 0-04 Anderso REDUCTAS 00:00: n E 00 INHIBITO RS STATINS- Drug Active Other 2020-02 MD HMG-COA Class 0-04 Anderso REDUCTAS 00:00: n E 00 INHIBITO RS STATINS- Drug Active Other 2020-02 MD HMG-COA Class 0-04 Anderso REDUCTAS 00:00: n E 00 INHIBITO RS STATINS- Drug Active Other 2020-02 MD HMG-COA Class 0-04 Anderso REDUCTAS 00:00: n E 00 INHIBITO RS STATINS- Drug Active Other 2020-02 MD HMG-COA Class 0-04 Anderso REDUCTAS 00:00: n E 00 INHIBITO RS STATINS- Drug Active Other 2020-02 MD HMG-COA Class 0-04 Anderso REDUCTAS 00:00: n E 00 INHIBITO RS STATINS- Drug Active Other 2020-02 MD HMG-COA Class 0-04 Anderso REDUCTAS 00:00: n E 00 INHIBITO RS STATINS- Drug Active Other 2020-02 MD HMG-COA Class 0-04 Anderso REDUCTAS 00:00: n E 00 INHIBITO RS STATINS- Drug Active Other 2020-02 MD HMG-COA Class 0-04 Anderso REDUCTAS 00:00: n E 00 INHIBITO RS STATINS- Drug Active Other 2020-02 MD HMG-COA Class 0-04 Anderso REDUCTAS 00:00: n E 00 INHIBITO RS STATINS- Drug Active Other 2020-02 MD HMG-COA Class 0-04 Anderso REDUCTAS 00:00: n E 00 INHIBITO RS STATINS- Drug Active Other 2020-02 MD HMG-COA Class 0-04 Anderso REDUCTAS 00:00: n E 00 INHIBITO RS STATINS- Drug Active Other 2020-02 MD HMG-COA Class 0-04 Anderso REDUCTAS 00:00: n E 00 INHIBITO RS STATINS- Drug Active Other 2020-02 MD HMG-COA Class 0-04 Anderso REDUCTAS 00:00: n E 00 INHIBITO RS STATINS- Drug Active Other 2020-02 MD HMG-COA Class 0-04 Anderso REDUCTAS 00:00: n E 00 INHIBITO RS STATINS- Drug Active Other 2020-02 MD HMG-COA Class 0-04 Anderso REDUCTAS 00:00: n E 00 INHIBITO RS STATINS- Drug Active Other 2020-02 MD HMG-COA Class 0-04 Anderso REDUCTAS 00:00: n E 00 INHIBITO RS STATINS- Drug Active Other 2020-02 MD HMG-COA Class 0-04 Anderso REDUCTAS 00:00: n E 00 INHIBITO RS STATINS- Drug Active Other 2020-02 MD HMG-COA Class 0-04 Anderso REDUCTAS 00:00: n E 00 INHIBITO RS STATINS- Drug Active Other 2020-02 MD HMG-COA Class 0-04 Anderso REDUCTAS 00:00: n E 00 INHIBITO RS STATINS- Drug Active Other 2020-02 MD HMG-COA Class 0-04 Anderso REDUCTAS 00:00: n E 00 INHIBITO RS STATINS- Drug Active Other 2020-02 MD HMG-COA Class 0-04 Anderso REDUCTAS 00:00: n E 00 INHIBITO RS STATINS- Drug Active Other 2020-02 MD HMG-COA Class 0-04 Anderso REDUCTAS 00:00: n E 00 INHIBITO RS STATINS- Drug Active Other 2020-02 MD HMG-COA Class 0-04 Anderso REDUCTAS 00:00: n E 00 INHIBITO RS STATINS- Drug Active Other 2020-02 MD HMG-COA Class 0-04 Anderso REDUCTAS 00:00: n E 00 INHIBITO RS STATINS- Drug Active Other 2020-02 MD HMG-COA Class 0-04 Anderso REDUCTAS 00:00: n E 00 INHIBITO RS STATINS- Drug Active Other 2020-02 MD HMG-COA Class 0-04 Anderso REDUCTAS 00:00: n E 00 INHIBITO RS STATINS- Drug Active Other 2020-02 MD HMG-COA Class 0-04 Anderso REDUCTAS 00:00: n E 00 INHIBITO RS STATINS- Drug Active Other 2020-02 MD HMG-COA Class 0-04 Anderso REDUCTAS 00:00: n E 00 INHIBITO RS STATINS- Drug Active Other 2020-02 MD HMG-COA Class 0-04 Anderso REDUCTAS 00:00: n E 00 INHIBITO RS STATINS- Drug Active Other 2020-02 MD HMG-COA Class 0-04 Anderso REDUCTAS 00:00: n E 00 INHIBITO RS STATINS- Drug Active Other 2020-02 MD HMG-COA Class 0-04 Anderso REDUCTAS 00:00: n E 00 INHIBITO RS STATINS- Drug Active Other 2020-02 MD HMG-COA Class 0-04 Anderso REDUCTAS 00:00: n E 00 INHIBITO RS STATINS- Drug Active Other 2020-02 MD HMG-COA Class 0-04 Anderso REDUCTAS 00:00: n E 00 INHIBITO RS STATINS- Drug Active Other 2020-02 MD HMG-COA Class 0-04 Anderso REDUCTAS 00:00: n E 00 INHIBITO RS STATINS- Drug Active Other 2020-02 MD HMG-COA Class 0-04 Anderso REDUCTAS 00:00: n E 00 INHIBITO RS STATINS- Drug Active Other 2020-02 MD HMG-COA Class 0-04 Anderso REDUCTAS 00:00: n E 00 INHIBITO RS STATINS- Drug Active Other 2020-02 MD HMG-COA Class 0-04 Anderso REDUCTAS 00:00: n E 00 INHIBITO RS STATINS- Drug Active Other 2020-02 MD HMG-COA Class 0-04 Anderso REDUCTAS 00:00: n E 00 INHIBITO RS STATINS- Drug Active Other 2020-02 MD HMG-COA Class 0-04 Anderso REDUCTAS 00:00: n E 00 INHIBITO RS STATINS- Drug Active Other 2020-02 MD HMG-COA Class 0-04 Anderso REDUCTAS 00:00: n E 00 INHIBITO RS STATINS- Drug Active Other 2020-02 MD HMG-COA Class 0-04 Anderso REDUCTAS 00:00: n E 00 INHIBITO RS STATINS- Drug Active Other 2020-02 MD HMG-COA Class 0-04 Anderso REDUCTAS 00:00: n E 00 INHIBITO RS STATINS- Drug Active Other 2020-02 MD HMG-COA Class 0-04 Anderso REDUCTAS 00:00: n E 00 INHIBITO RS STATINS- Drug Active Other 2020-02 MD HMG-COA Class 0-04 Anderso REDUCTAS 00:00: n E 00 INHIBITO RS STATINS- Drug Active Other 2020-02 MD HMG-COA Class 0-04 Anderso REDUCTAS 00:00: n E 00 INHIBITO RS STATINS- Drug Active Other 2020-02 MD HMG-COA Class 0-04 Anderso REDUCTAS 00:00: n E 00 INHIBITO RS STATINS- Drug Active Other 2020-02 MD HMG-COA Class 0-04 Anderso REDUCTAS 00:00: n E 00 INHIBITO RS STATINS- Drug Active Other 2020-02 MD HMG-COA Class 0-04 Anderso REDUCTAS 00:00: n E 00 INHIBITO RS STATINS- Drug Active Other 2020-02 MD HMG-COA Class 0-04 Anderso REDUCTAS 00:00: n E 00 INHIBITO RS STATINS- Drug Active Other 2020-02 MD HMG-COA Class 0-04 Anderso REDUCTAS 00:00: n E 00 INHIBITO RS STATINS- Drug Active Other 2020-02 MD HMG-COA Class 0-04 Anderso REDUCTAS 00:00: n E 00 INHIBITO RS STATINS- Drug Active Other 2020-02 MD HMG-COA Class 0-04 Anderso REDUCTAS 00:00: n E 00 INHIBITO RS STATINS- Drug Active Other 2020-02 MD HMG-COA Class 0-04 Anderso REDUCTAS 00:00: n E 00 INHIBITO RS STATINS- Drug Active Other 2020-02 MD HMG-COA Class 0-04 Anderso REDUCTAS 00:00: n E 00 INHIBITO RS STATINS- Drug Active Other 2020-02 MD HMG-COA Class 0-04 Anderso REDUCTAS 00:00: n E 00 INHIBITO RS STATINS- Drug Active Other 2020-02 MD HMG-COA Class 0-04 Anderso REDUCTAS 00:00: n E 00 INHIBITO RS STATINS- Drug Active Other 2020-02 MD HMG-COA Class 0-04 Anderso REDUCTAS 00:00: n E 00 INHIBITO RS STATINS- Drug Active Other 2020-02 MD HMG-COA Class 0-04 Anderso REDUCTAS 00:00: n E 00 INHIBITO RS STATINS- Drug Active Other 2020-02 MD HMG-COA Class 0-04 Anderso REDUCTAS 00:00: n E 00 INHIBITO RS STATINS- Drug Active Other 2020-02 MD HMG-COA Class 0-04 Anderso REDUCTAS 00:00: n E 00 INHIBITO RS STATINS- Drug Active Other 2020-02 MD HMG-COA Class 0-04 Anderso REDUCTAS 00:00: n E 00 INHIBITO RS STATINS- Drug Active Other 2020-02 MD HMG-COA Class 0-04 Anderso REDUCTAS 00:00: n E 00 INHIBITO RS STATINS- Drug Active Other 2020-02 MD HMG-COA Class 0-04 Anderso REDUCTAS 00:00: n E 00 INHIBITO RS STATINS- Drug Active Other 2020-02 MD HMG-COA Class 0-04 Anderso REDUCTAS 00:00: n E 00 INHIBITO RS STATINS- Drug Active Other 2020-02 MD HMG-COA Class 0-04 Anderso REDUCTAS 00:00: n E 00 INHIBITO RS STATINS- Drug Active Other 2020-02 MD HMG-COA Class 0-04 Anderso REDUCTAS 00:00: n E 00 INHIBITO RS STATINS- Drug Active Other 2020-02 MD HMG-COA Class 0-04 Anderso REDUCTAS 00:00: n E 00 INHIBITO RS STATINS- Drug Active Other 2020-02 MD HMG-COA Class 0-04 Anderso REDUCTAS 00:00: n E 00 INHIBITO RS STATINS- Drug Active Other 2020-02 MD HMG-COA Class 0-04 Anderso REDUCTAS 00:00: n E 00 INHIBITO RS STATINS- Drug Active Other 2020-02 MD HMG-COA Class 0-04 Anderso REDUCTAS 00:00: n E 00 INHIBITO RS STATINS- Drug Active Other 2020-02 MD HMG-COA Class 0-04 Anderso REDUCTAS 00:00: n E 00 INHIBITO RS STATINS- Drug Active Other 2020-02 MD HMG-COA Class 0-04 Anderso REDUCTAS 00:00: n E 00 INHIBITO RS STATINS- Drug Active Other 2020-02 MD HMG-COA Class 0-04 Anderso REDUCTAS 00:00: n E 00 INHIBITO RS STATINS- Drug Active Other 2020-02 MD HMG-COA Class 0-04 Anderso REDUCTAS 00:00: n E 00 INHIBITO RS STATINS- Drug Active Other 2020-02 MD HMG-COA Class 0-04 Anderso REDUCTAS 00:00: n E 00 INHIBITO RS Statins- Drug Active Other (See 2020-[address] Hmg-Coa Intolera Comments) 0-04 Luke s Reductas nce 00:00: Medical e 00 Center Inhibito rs STATINS- Drug Active Other 2020-02 MD HMG-COA Class 0-04 Anderso REDUCTAS 00:00: n E 00 INHIBITO RS STATINS- Drug Active Other 2020-02 MD HMG-COA Class 0-04 Anderso REDUCTAS 00:00: n E 00 INHIBITO RS STATINS- Drug Active Other 2020-02 MD HMG-COA Class 0-04 Anderso REDUCTAS 00:00: n E 00 INHIBITO RS STATINS- Drug Active Other 2020-02 MD HMG-COA Class 0-04 Anderso REDUCTAS 00:00: n E 00 INHIBITO RS STATINS- Drug Active Other 2020-02 MD HMG-COA Class 0-04 Anderso REDUCTAS 00:00: n E 00 INHIBITO RS STATINS- Drug Active Other 2020-02 MD HMG-COA Class 0-04 Anderso REDUCTAS 00:00: n E 00 INHIBITO RS STATINS- Drug Active Other 2020-02 MD HMG-COA Class 0-04 Anderso REDUCTAS 00:00: n E 00 INHIBITO RS STATINS- Drug Active Other 2020-02 MD HMG-COA Class 0-04 Anderso REDUCTAS 00:00: n E 00 INHIBITO RS NO KNOWN Allergy Active [facility] Family History Family Member Diagnosis Comments Start Date Stop Date Source Maternal aunt Breast cancer [facility] Jose Alejandro Cance r [place] Maternal aunt Genetic [facility] [place] M D Breast Cancer Jose Alejandro Ca vaer [place] Maternal aunt Pancreatic cancer [facility] Jose Alejandro Cance r Center Maternal cousin [facility] MD Jose Alejandro Cance r [place] Maternal [facility] MD Jose Alejandro Cance r [place] Maternal Ovarian cancer [facility] MD Jose Alejandro Cance r [place] Maternal uncle [facility] MD Jose Alejandro Cance r [place] Natural mother Ovarian cancer [facility] Jose Alejandro Cance r [place] Natural mother Cancer [facility] Nephew [facility] MD Jose Alejandro Cance r [place] Niece [facility] MD Jose Alejandro Cance r [place] Paternal aunt [facility] MD Jose Ale[facility]andro Cance r Center Paternal cousin [facility] MD Jose Alejandro Cance r [place] Paternal Cancer [facility] Jose Alejandro Cance r [place] Paternal [facility] MD Jose Alejandro Cance r [place] Paternal uncle [facility] MD Jose Alejandro Cance r [place] Natural son [facility] Jose Alejandro Cance r [place] Natural sister Hyperlipidemia [facility] Natural sister Hypertension [facility] Natural sister Heart disease [facility] Natural father Hyperlipidemia [facility] Natural father Hypertension [facility] Natural father Stroke [facility] Social History Social Habit Start Date Stop Date Quantity Comments Source Alcohol intake 2020-11-19 2020-11-19 Current drinker BETTIE riley Luadrian 00:00:00 00:00:00 of [facility] (finding) Tobacco use and 2018-07-07 2018-07-07 Smokeless tobacco Un iversity of exposure 00:00:00 00:00:00 non-user [facility] Alcohol Comment 2018-06-01 2018-06-01 I only drink on Univ ersity of 00:00:00 00:00:00 wknds, [facility] occasionally. Not Cancer Center every wknd Sex Ass[birth year] At [birth year] BETTIE Patino 00:00:00 00:00:00 [facility] Smoking Status Start Date Stop Date Source Never smoked tobacco [facility] [place] [facility] Medications Ordered Filled Start Stop Current Ordering Indication Dosage Frequency Signature Comments Components Source Medication Medication Date Date Medication? Clinician (SIG) Name Name ascorbic Yes 100mg Take 1 Univer s acid, 8-11 tablet ity of vitamin C, 13:02: (100 mg) Aidan as (VITAMIN C) 48 by mouth 100 mg daily. [facility] polyethylen Yes 17g Take 17 g U nivers e glycol 8-11 by mouth ity of (MIRALAX) 13:02: [place] 17 [place] packet 48 [facility] valACYclovi Yes 500mg Take 1 Uni vers r (VALTREX) 8-11 tablet ity of 500 mg 13:02: (500 mg) [place] tablet 48 by mouth as needed. [facility] loratadine Yes 10mg Take 1 Unive rs (CLARITIN) 8-11 tablet (10 ity of 10 mg 13:02: mg) by [place] tablet 48 mouth MD daily. [facility] cholecalcif Yes 1{capsu Take 1 U nivers luis, 8-11 le} capsule by ity of vitamin D3, 13:02: mouth [place] 10 mcg (400 48 daily. MD unit) cap [facility] mv,Ca,min/i 2022- No Take by Un latoya petey/FA/guar 03-13 mouth. ity o f norm/caff 10:07: 00:00 Lars (ONE-A-DAY 42 :00 WOMEN'S Benedicto ACTIVE n ORAL) Cancer Center minocycline 2022- No Reconstruct 100mg Take 1 Univers (MINOCIN) 03-1312 ed breast capsule i ty of 100 mg 00:00: 00:00 deformity (100 mg) [place] capsule 00 :00 by mouth MD twice Anderso daily. n Cancer Center traMADol 2022- No Reconstruct 50mg Take 1 Univers (Ultram) 50 03-13 0210 ed breast tablet (50 ity of mg tablet 00:00: 00:00 deformity mg) by Lars 00 :00 mouth MD every 6 Anderso (six) n hours as Cancer needed for Center moderate pain. escitalopra 2021-02 Yes 10mg Take 1 Univ ers m (LEXAPRO) 03-15 tablet (10 it y of 10 mg 00:00: mg) by Lars tablet 00 mouth MD daily. Andjesika n [facility] risedronate 2021-02 Yes 150mg Take 1 Uni vers (ACTONEL) 03-15 tablet ity of 150 mg 00:00: (150 mg) [place] tablet 00 by mouth MD every 30 Anderso (thirty) n days. Cancer Center gabapentin 2022- No 2{capsu Take 2 U nivers (NEURONTIN) 11-07 le} capsules ity of 100 mg 00:00: 00:00 by mouth [place] capsule 00 :00 at MD bedtime. Benedicto doherty [facility] morphine No Chest pain, 7.5mg Take 0.5 Univers (MSIR) 15 08-17 not tablets ity of mg IR 00:00: 00:00 otherwise (7.5 mg) [place] tablet 00 :00 specified by mouth every 8 Anderso (eight) n hours as Cancer needed for Center pain or severe pain. PARoxetine 2022- No 1{tbl} Take 1 Un latoya (PAXIL-CR) 07-05 tablet by ity of 12.5 mg 24 00:00: 00:00 mouth Lars hr tablet 00 :00 daily. 5mg MD [facility] calcium 2020-02 Yes Take by [facility] carbonate-v 0-04 mouth. [facility] itamin D3 09:20: Medical 600 28 Center mg(1,500mg) -200 unit per tablet coenzyme 2020-02 Yes 100mg QD Take [address] [facility] Q10 100 mg 0-04 mg by [facility] capsule 09:20: mouth Medical 28 daily. [place] tazarotene 2020-02 Yes QD Apply [facility] (Arazlo) 0-04 topically [facility] 0.045 % 09:20: daily. Medical Lotn 28 [place] calcium 2020-02 Yes Take by [facility] carbonate-v 0-04 mouth. [facility] itamin D3 09:20: Medical 600 28 Center mg(1,500mg) -200 unit per tablet coenzyme 2020-02 Yes 100mg QD Take [address] Q10 100 mg 0-04 mg by [facility] capsule 09:20: mouth Medical 28 daily. [place] tazarotene 2020-02 Yes QD Apply [facility] (Arazlo) 0-04 topically [facility] 0.045 % 09:20: daily. Medical Lotn 28 [place] meloxicam 2020-02- No Limited 15mg Take [address] (Mobic) 15 0-04 10-04 range of tablet (15 [facility] MG tablet 00:00: 23:59 motion mg total) Medical 00 :00 (ROM) of by mouth Center shoulder daily as needed for Pain. meloxicam 2020-02- No Limited 15mg Take [address] (Mobic) 15 0-04 10-04 range of tablet (15 [facility] MG tablet 00:00: 23:59 motion mg total) Medical 00 :00 (ROM) of by mouth Center shoulder daily as needed for Pain. raloxifene Yes 60mg QD Take [address] (EVISTA) 60 9-18 by mouth Luke s mg tablet 00:00: daily. Medica l 00 [place] raloxifene Yes 60mg QD Take [address] (EVISTA) 60 9-18 by mouth Luke s mg tablet 00:00: daily. Medica l 00 [place] Repatha Yes [facility] SureClick 9-03 [facility] 140 mg/mL 00:00: Medical PnIj 00 [place] Repatha Yes [facility] SureClick 9-03 [facility] 140 mg/mL 00:00: Medical PnIj 00 [place] cyclobenzap Yes 10mg Take [address] rine 6-29 by mouth. [facility] (FLEXERIL) 00:00: Medical 10 MG 00 Center tablet cyclobenzap Yes 10mg Take [address] rine 6-29 by mouth. [facility] (FLEXERIL) 00:00: Medical 10 MG 00 Center tablet famotidine Yes [facility] (PEPCID) 20 6-27 [facility] MG tablet 00:00: Medical 00 [place] famotidine Yes [facility] (PEPCID) 20 6-27 [facility] MG tablet 00:00: Medical 00 [place] raloxifene 2022- No TAKE 1 Univ ers (EVISTA) 60 6-10 01-25 TABLET BY it y of mg tablet 00:00: 00:00 MOUTH [place] 00 :00 EVERY DAY MD Diane [facility] estradiol Yes Univers (ESTRACE) 4-01 ity of 0.1 mg/g 00:00: [place] (0.01%) 00 vaginal Andbooneo cream [facility] estradioL Yes [facility] (ESTRACE) 4-01 [facility] 0.01 % (0.1 00:00: Medica l mg/gram) 00 [place] vaginal cream estradioL Yes [facility] (ESTRACE) 4-01 [facility] 0.01 % (0.1 00:00: Medica l mg/gram) 00 [place] vaginal cream senna-docus 2019-02- No BRCA1 gene 1{tbl} Take 1 Univers ate 0-30 02-10 mutation tablet by ity o f (Senokot-S) 00:00: 00:00 positive mouth [place] 8.6 mg-50 00 :00 twice MD mg tablet daily. Benedicto doherty [facility] Repatha Yes 140mg Inject 140 Uni vers SureClick 7-29 mg under ity of 140 mg/mL 00:00: the skin [place] pnij 00 every 14 (fourteen) Benedicto mckay. n [facility] cyclobenzap Yes 10mg Take 1 Univ ers rine 3-28 tablet (10 ity of (FLEXERIL) 00:00: mg) by [place] 10 mg 00 mouth as tablet needed. Benedicto doherty [facility] Vital Signs Vital Name Observation Time Observation Value Comments Source HEIGHT 2020-11-19 09:14:00 160 cm WEIGHT 2020-11-19 09:14:00 59.966 kg WEIGHT 2020-07-31 13:20:28 62.6 kg Systolic blood 2022-09-26 17:59:57 109 mm[Hg] Univer sity of pressure [place] [facility] Diastolic blood 2022-09-26 17:59:57 74 mm[Hg] Unive rsity of pressure [place] MD [place] on [email or web address] Heart rate 2022-09-26 17:59:57 84 /min Universi ty of [place] MD [place] on [facility] [email or web address] Body temperature 2022-09-26 17:59:57 36.78 Jeaneth [facility] [place] [email or web address] Respiratory rate 2022-09-26 17:59:57 18 /min [facility] [place] [email or web address] Body weight 2022-09-26 17:59:57 67.3 kg [facility] [place] [email or web address] BMI 2022-09-26 17:59:57 25.80 kg/m2 [facility] MD [place] [email or web address] Oxygen saturation in 2022-09-26 17:59:57 95 /min [facility] Arterial blood by [place] MD Joslyn keys Pulse oximetry [facility] Procedures Procedure Date / Time Performing Clinician Source Performed PATHOLOGY SURGICAL 2022-03-13 13:32:00 Harley Lucero [facility] INTERPRETATION [facility] REMOVAL OF BREAST IMPLANT 2022-03-13 12:30:00 [facility] MAMMOPLASTY 2022-03-13 12:30:00 [facility]OSTHETIC IMPLANT MD Cerda son [facility] COVID-19 (SARS-COV-2) PCR 2022-03-12 17:31:00 Harley Lucero nivFormerly [facility] COMPLETE BLOOD COUNT W/ 2022-03-12 17:24:00 [facility]lic[facility] Car [facility] ersity [facility] DIFFERENTIAL [facility] COMPREHENSIVE METABOLIC 2022-03-12 17:24:00 Ulices Car [facility] PANEL [facility] HEMOGLOBIN A1C 2022-03-12 17:24:00 Ulices Car [facility] Results CBC 2022-03-12 17:24:00 Ulices Car [facility] MANUAL DIFFERENTIAL 2022-03-12 17:24:00 Ulices Car [facility] GLUCOSE LEVEL 2022-03-12 17:24:00 Ulices Car [facility] BLOOD UREA NITROGEN 2022-03-12 17:24:00 Ulices Car [facility] ELECTROLYTE PANEL 2022-03-12 17:24:00 Ulices Car [facility] SERUM CREATININE 2022-03-12 17:24:00 Ulices Car [facility] .GLOMERULAR FILTRATION 2022-03-12 17:24:00 Ulices Car [facility] RATE [facility] CALCIUM LEVEL TOTAL 2022-03-12 17:24:00 Ulices Car [facility] ALBUMIN LEVEL 2022-03-12 17:24:00 Ulices Car [facility] ALKALINE PHOSPHATASE 2022-03-12 17:24:00 Ulices Car [facility] ALANINE AMINOTRANSFERASE 2022-03-12 17:24:00 [facility] ASPARTATE AMINOTRANSFERASE 2022-03-12 17:24:00 [facility] TOTAL PROTEIN 2022-03-12 17:24:00 Ulices Car [facility] FRACTIONATED BILIRUBIN 2022-03-12 17:24:00 Ulices Car [facility] Plan of Care Planned Activity Planned Date Details Comments Source Future Scheduled 2022-10-17 Influenza Vaccine (#1) [facility] 00:00:00 [code = Influenza Medical Ce nter Vaccine (#1)] Future Scheduled 2022-10-17 Influenza Vaccine (#1) [facility] 00:00:00 [code = Influenza Medical Ce nter Vaccine (#1)] Future Scheduled 2022-10-02 COVID-19 Vaccination Uni versity of Test 13:05:18 (#1) [code = COVID-19 [facility] Vaccination (#1)] Cancer [facility] Future Scheduled 2022-02-[address] [facility] 00:00:00 (12+) [code = DEPRESSION Med ical Center SCREENING (12+)] Future Scheduled 2022-02-[address] [facility] 00:00:00 (12+) [code = DEPRESSION Med ical Center SCREENING (12+)] Future Scheduled 2021-11-[address] [facility] Test 00:00:00 Counseling and Screening Med ical Center (12+) [code = Tobacco Cessation Counseling and Screening (12+)] Future Scheduled 2021-11-[address] [facility] Test 00:00:00 Counseling and Screening Med ical Center (12+) [code = Tobacco Cessation Counseling and Screening (12+)] Future Scheduled 1997 DTAP/TDAP/TD VACCINES ([address] [facility] 00:00:00 - Tdap) [code = Medical Cent er DTAP/TDAP/TD VACCINES (1 - Tdap)] Future Scheduled 1997 DTAP/TDAP/TD VACCINES ([address] [facility] 00:00:00 - Tdap) [code = Medical Cent er DTAP/TDAP/TD VACCINES (1 - Tdap)] Future Scheduled 1996 HEPATITIS C [facility]CRE[facility]ING [facility] 00:00:00 [code = HEPATITIS C Medical Center SCREENING] Future Scheduled 1996 HEPATITIS C [facility]CRE[facility]ING [facility] 00:00:00 [code = HEPATITIS C Medical Center SCREENING] Future Scheduled [address] [facility] 00:00:00 virus screening Medical Cent er (procedure) [code = 582890313] Future Scheduled [address] [facility] 00:00:00 virus screening Medical Cent er (procedure) [code = 080089886] Future Scheduled 1979-07-01 COVID-19 VACCINE (#1) [facility] 00:00:00 [code = COVID-19 VACCINE Med [facility] Center (#1)] Future Scheduled 1979-07-01 COVID-19 VACCINE (#1) [facility] 00:00:00 [code = COVID-19 VACCINE [facility] Center (#1)] Encounters Start End Encounter Admission Attending Care Care Encounter Source Date/Time Date/Time Type Type Clinicians Facility Department ID 2021-10-09 Outpatient SYSTEM, [facility] [id number] 09:11:23 PROVIDER Jean Pierre doherty 2021-03-[address] [facility] [id number] Common 14:12:55 [id number] 2020-08-01 Outpatient SYSTEM, [facility] [id number] 09:34:13 PROVIDER Jean Pierre doherty 2020-06-07 Outpatient SYSTEM, [facility] [id number] 10:06:21 PROVIDER Jean Pierreboone doherty 2022-09-26 2022-09-26 Follow-Up Mel Kinney 1.2.840.1 [id number] [facility] 13:00:00 13:24:22 54193.1.1 ity of 3.412.2.7 [place] .3.331567 .8 [facility] 2022-09-26 2022-09-26 Outpatient EL KINNEYCARLI GarciaFL [facility] [id number] 12:52:38 13:24:22 Jean Pierre o chas 2022-09-26 2022-09-26 Travel 1.2.840.1 1.2.840.270 [id number] [facility] 00:00:00 00:00:00 44755.1.1 350.1.13.41 ity of 3.412.2.7 [place]7.3.698 [place]3.6065[place] 084.8 .8 [facility] 2022-08-27 2022-08-27 Follow-Up Hassid, 1.2.840.1 [id number] [facility] 09:15:00 09:15:00 Harley Cervantes 38165.1.1 ity of 3.412.2.7 [place] .3.027914 MD Nation8 [facility] 2022-08-27 2022-08-27 Outpatient KODY LUCERO [facility] MDA [id number] 08:39:11 08:58:31 HARLEY doherty 2022-08-27 2022-08-27 Travel 1.2.840.1 1.2.079.203 [id number] Univers 00:00:00 00:00:00 10152.1.1 350.1.13.41 ity of 3.412.2.7 [place]7.3.698 [place] .3.181119 084.8 MD Iverson [facility] 2022-03-28 2022-03-28 Follow-Up KinneyMel garcia 1.2.840.1 [id number] [facility] 09:00:00 09:36:07 66230.1.1 ity of 3.412.2.7 [place] .3.119472 MD Iverson [facility] 2022-03-28 2022-03-28 Outpatient KODY KINNEY MEL [facility] MDA [id number] 08:31:53 09:36:07 Jean Pierre doherty 2022-03-28 2022-03-28 Travel 1.2.840.1 1.2.396.170 [id number] Univers 00:00:00 00:00:00 68781.1.1 350.1.13.41 ity of 3.412.2.7 [place]7.3.698 [place] .3.782038 084.8 MD Iverson [facility] 2022-03-21 2022-03-21 Office Ulices Car 1.2.840.1 [id number] [facility] 09:30:00 09:55:04 Visit A 12420.1.1 ity of 3.412.2.7 [place] .3.151027 MD Iverson [facility] 2022-03-21 2022-03-21 Outpatient ULICES HIGGINS [facility] MDA [id number] 09:04:31 09:55:04 Jean Pierre garcia chas 2022-03-21 2022-03-21 Travel 1.2.840.1 1.2.159.842 [id number] Univers 00:00:00 00:00:00 15128.1.1 350.1.13.41 ity of 3.412.2.7 [place]7.3.698 [place] .3.790040 084.8 MD Nation8 [facility] 2022-03-14 2022-03-14 Telephone Luico, 1.2.840.1 [id number] Univers 00:00:00 00:00:00 Fatou Thompson 58275.1.1 ity of 3.412.2.7 [place] .3.912354 MD Nation8 [facility] 2022-03-13 2022-03-13 Hospital Hassid, 1.2.840.1 [id number] Univers 05:34:00 10:07:00 Encounter Harley Cervantes 66677.1.1 i ty of 3.412.2.7 [place] .3.679844 MD Nation8 [facility] 2022-03-13 2022-03-13 Outpatient EL JAZMINE, MDA Plastic [id number] 05:34:00 10:07:00 HARLEY Surg Jean Pierre doherty 2022-03-13 2022-03-13 Surgery Hassid, 1.2.840.1 [id number] Univers 07:00:00 09:00:00 Harley Cervantes 80793.1.1 ity of 3.412.2.7 [place] .3.407120 MD Nation8 [facility] 2022-03-13 2022-03-13 Anesthesia Nas, 1.2.840.1 [id number] Univers 06:58:00 08:24:00 Event Jose Angel 20471.1.1 ity of 3.412.2.7 [place] .3.266941 MD Nation8 [facility] 2022-03-13 2022-03-13 Travel 1.2.840.1 1.2.895.863 [id number] Univers 00:00:00 00:00:00 23334.1.1 350.1.13.41 ity of 3.412.2.7 [place]7.3.698 [place]3.238617 084.8 MD Nation8 [facility] 2022-03-12 2022-03-12 [facility] Ulices Car 1.2.840.1 [id number] Univers 11:11:36 23:59:00 Nena Jorgensen 03065.1.1 it y of 3.412.2.7 [place] .3.894203 MD Nation8 [facility] 2022-03-12 2022-03-12 Outpatient ULICES HIGGINS [facility] [id number] 11:11:36 23:59:00 Jean Pierre doherty 2022-03-12 2022-03-12 Clinical Ulices Car 1.2.840.1 [id number] [facility] 12:30:00 12:47:53 Support Ana Araujo 39245.1.1 ity of 3.412.2.7 [place] .3.985314 .8 [facility] 2022-03-12 2022-03-12 Outpatient ULICES HIGGINS [facility] MDA [id number] 11:27:54 12:47:53 Jean Pierre doherty 2022-03-12 2022-03-12 RYANNE [facility] Car 1.2.840.1 [id number] [facility] 10:30:00 11:00:00 Apryl Jorgensen 29798.1.1 i ty of ts 3.412.2.7 [place] .3.780471 MD Iverson [facility] 2022-03-12 2022-03-12 Office Jazmine 1.2.840.1 [id number] Univers 09:00:00 09:15:00 Visit Harley Cervantes 78056.1.1 ity of 3.412.2.7 [place] .3.325949 MD Iversno [facility] [place] 2022-03-12 2022-03-12 Outpatient KODY LUCERO MDA MDA [id number] 08:47:01 08:47:01 HARLEY doherty 2022-03-12 2022-03-12 Outpatient EL JOSEP ULICES [facility] [id number] 07:18:55 07:18:55 Jean Pierre doherty 2022-03-12 2022-03-12 Travel 1.2.840.1 1.2.352.574 [id number] Univers 00:00:00 00:00:00 93613.1.1 350.1.13.41 ity of 3.412.2.7 [place]7.3.698 [place] .3.224670 084.8 MD Nation8 [facility] 2022-03-11 2022-03-11 Anesthesia Rostdave, 1.2.840.1 [id number] Univers 21:12:49 21:12:49 Event Ambika 66092.1.1 ity of 3.412.2.7 [place] .3.514420 MD Nation8 [facility] 2021-11-11 2021-11-11 Orders Ulices Car 1.2.840.1 [id number] Univers 00:00:00 00:00:00 Only A 97797.1.1 ity of 3.412.2.7 [place] .3.954360 MD Nation8 [facility] 2021-11-08 2021-11-08 Office Jazmine 1.2.840.1 [id number] Univers 08:45:00 09:14:19 Visit Harley Cervantes 95810.1.1 ity of 3.412.2.7 [place] .3.197545 MD [facility]verson [facility] 2021-11-08 2021-11-08 Outpatient KODY LUCERO MDA MDA [id number] 08:32:58 09:14:19 HARLEY doherty 2021-11-08 2021-11-08 Prep for Josep Ulices 1.2.840.1 [id number] Univers 00:00:00 00:00:00 Surgery A 37332.1.1 ity of 3.412.2.7 [place] .3.304833 MD Nation8 [facility] 2021-11-08 2021-11-08 Travel 1.2.840.1 1.2.503.330 [id number] Univers 00:00:00 00:00:00 57022.1.1 350.1.13.41 ity of 3.412.2.7 [place]7.3.698 [place] .3.398789 084.8 .8 [facility] 2021-10-15 2021-10-15 Orders Ulices Car 1.2.840.1 [id number] Univers 00:00:00 00:00:00 Only A 81433.1.1 ity of 3.412.2.7 [place] .3.613620 .8 [facility] 2021-09-27 2021-09-27 Outpatient MEL RILEY MDA MDA [id number] 09:08:41 10:07:11 Jean Pierre doherty 2021-08-17 2021-08-17 Emergency ER RICHAISADORA MDA Emergency [id number] 15:24:00 20:57:00 Jean Pierre doherty 2021-07-30 2021-07-30 Outpatient KODY VARGAS MDA MDA [id number] 12:57:07 12:57:07 NORM doherty 2021-07-25 2021-07-25 Outpatient KODY ONEIL MDA MDA [id number] 11:30:02 11:30:02 DIANA YI 2021-07-12 2021-07-12 Outpatient KODY LUCERO MDA MDA [id number] 11:46:58 12:38:50 HARLEY doherty 2021-03-15 2021-03-15 Outpatient MEL RILEY MDA MDA [id number] 09:29:12 10:51:56 Jean Pierre doherty 2020-11-19 2020-11-[address] [facility] [id number] 00:[facility] 00:00:00 [facility] 2020-11-14 2020-11-14 Outpatient KODY LIU MDA MDA [id number] 09:45:00 23:59:00 Jean Pierre AZEVEDO 2020-10-19 2020-10-19 Outpatient MEL KINNEY MDA MDA [id number] 08:45:15 09:35:57 Jean Pierre doherty 2020-08-07 2020-08-07 Outpatient EL TREV, MDA MDA [id number] 08:01:35 08:01:35 KING doherty 2020-07-31 2020-07-31 Outpatient KODY VARGAS, MDA MDA [id number] 13:07:54 13:51:38 NORM doherty 2019-11-07 2019-11-07 Outpatient CONSTANCE, MDA MDA [id number] 00:00:00 00:00:00 ARCELIA doherty 2019-11-07 2019-11-07 Outpatient ABDIRASHID PERSAUD MDA MDA [id number] 00:00:00 00:00:00 Jean Pierre doherty 2019-11-07 2019-11-07 Outpatient ABDIRASHID PERSAUD MDA MDA [id number] 00:00:00 00:00:00 Jean Pierre doherty 2019-07-29 2019-07-29 Outpatient SAM, MDA MDA [id number] 11:00:00 23:59:00 NORM doherty 2019-01-20 2019-01-20 Outpatient MHFB ISABEL [id number] MHFB 05:39:00 05:39:00 2018-06-01 2018-06-01 Outpatient SAM, MDA MDA [id number] 10:49:34 10:49:34 NORM doherty 2018-06-01 2018-06-01 Outpatient MDA MDA [id number] 10:46:37 10:46:44 Jean Pierre doherty Results Test Description Test Time Test Comments Results Result Comments Source Pathology Surgical Interpretation 2022-03-14 18:07:01 Test Item Value Reference Range Interpretation Comme nts Submitted q2szaAVkUBYqh5aaINFnnPQyVgLmRyQfRcEiLpsmbLNvWYgoatIxEKpwo4FqV6VkKqMhPSkrjuErNJZz EkqdfdkcXRXjRCJ7fqIvGJHeYMvnNJTqTPjsKb6lyCCfkSafHsCaCMXsz7mdhvFHhmoxaNb1f3fnMTRw NaQ2xZWzXRbaQ0spjxWncXQhXUBmGAc6hW77RWSueX4 Clinical feSVgBDybvdGnSfC8LRhsILDfSvX5XZNqiWLvWIHaL9onDDIbYSeoCLIuEGnoyCLqNFV7oRteo9G5rHZ xxIHrlCzeNqDpMkTcXbNLh0JaOQc7nXapQ2AwZKUkGpX7sNAwPVAqWQgdZKDyWRJzaeA6zE72XQpkmpY 1zGWcw4Ltv09aq667bX1lpOUxVIN9PYOfWCAdmBVsKJ History UfUCY8TBWwyWMnX5wnZQYuUG1ncxwgKObyJRpzBUUbjED0OLRyuYUlL0HbOUEaSSqsPLZvzxw5XmKvZf 2kqICggGsiCEklb2wuu6dmwEQtVwx8HNUeEiSnGggnVAxlp5Jln4wlOFKbga4gIQZ4tDZmbLmoa1F3oY DfDRHevZFrecHqVKDsQsF4FQhtGL4zfg07RTVhQIN6n (test code e5gkEWlaCxtrdWoyTJhDEvpH4ZdEWPhr068GEXlP9KvLPNmc8O0ysUkLcZgBNBhrXD7leW8JPYxUQg5o CSxkvM8jsYajHIdG4ctjG5hGCZoWX6tmgmgf7vvHNneSJccITAfdET0unM2HXLrtYCgC6KskR1pMLHiE GneKSPlqty4FhAnMv5joVTatKvbTVkmLgtfAIxxVGEr = 69025) ocKnttRmzJwgQTNuZHPoRAwsQTJgCIlqPHPbZXShJhFftSkyiFaymU7aKpMkUeQaVKwfJE4vDRFtR9xt lPRcGZLeJCKbE7vlRhQatW3dtYpjCOoruqRiFQLvP10rz2XdtLT7RZClGpBmWPX3NFNcFu1jnIm6yDLo GgH1UvFvZNNcRYqbLLNpOOWsNyDawCYyXvIcXmWzyKi eiMndMXbnIkHjDDViLGwwO9fqPiIsBlHhUuovYKC5xX== Diagnosis q6ywwCPpWEJylPQeOFEvMigumkVyUGYmwSVkF7SwttgwLZpxHL1fVS6nlVfbmHFrgOFkZDLsHjIrf2ds i833yGHsz6cvABLAfkenbAy2nGgsZ09pd0H9KspfB87efWIjJWB0FNLmWWKdgUNgTWEzOYF1YEYynBQs S3anBJBxCD4zlkjeDBaeJKbxOSEjmYP4AKTqiCGqY9W (test code xKKGbZGlkEBFisgq4FoLhPx6duUXxcMrhUMhmRIOyXGNjYImvYHBzFvZkLX3eAKIjK4z7LOScQJAmnGt nmFQilIZshU4faQTfw9mfJTEuPPTcARO1M6bsiD9gBkzvEYIrnDFmCB4mPEX9bAArrxGwWY3vMA8oqWn rhyOwH1lfMVhhMSGhGfi0EcNjX1ndbmN8mYCqFDKsZB = 34) BtBD0wYAOjSFRnqBvcrpdiAxmvve3si40kSWQ7uAGtKBUhl7M2SSEus13gxMS9SW81SJgpeYwfnQ8buP UlkGMoAKPfmRbwNxUrnIPvGDQbBRRXViFsIWKchFOpugSvd0NoRT1od1KsN7GcuRoox0yrkzKgC0NnPW WjoQEvm7krlaoyoCVnXKDaBxWEc2jbYIbqeYihj4Uqv jpoxh9swQZsd7AbnXJin5IsgN5cNZCemkZHCqMxGESnnFStasEgp8ZgYVsttYmmgkStPUNbpD17MBi3Q BSnvdu0JSRzCY5ksIOwdLKzvYDtyJHjxVRyLVUbF7LkWQEnfz0ohyDwoNWmxj7mgBCtw42siJ9qyMKvQ OInGHKRbSdmgTKslhOas1BhHXdikVnuvqBeJSCllY07 UGu2GJJpwti0YRSoDQ1fhXRttVHsyRSvxWSgrWNcCVTyE7PxRJDoji8rzkFjpEXube8caLRjt12exQ9q cGFyfQ== Gross a3wgxZJmQEPmsZARNBTtCZXdUW8jhGhubDs0mLvqPIIxgtU3hVPgXKhom5hlJWD4d9pydsBXArjfUAWa WR6ySStjHHQvBK9cZmPgKUJpBqLwGDTjiPAbqfApSsCyKXOrdHSyoYY5QJLiOV5bfatgQXgrNVhpWOSm qfJ6DKUfvAEgK1ExILJsME4aqwxsXUS8OMUKWizcKn5 Descriptio erQWqkOhtSwXrGfYsQZYpIEQfVFOdrQatFTKwULx0cR2SLgwrK84ry2Y3Lix7WFEdRGKhL1PrVY8xMDK tbCBjH64PVwjnORN2OKLCTituRvmwrBqxs4LgeVQzVYTrIJkxmDBmSPFyPIXyJJphMsSVKpHgQtGdLSz 2ChX7ZwS1WPl0KPMUCZInRwE9FITsRPM9EXe0GAVjHG n (test 7gKCbeeJMtQIgxAhnmRFnaY561ZGszSYXbL1WuT6TfUPywTbUzEJowZXBiDFVkHHtqSGYpS9JVWLZoIY M3WMMaLCApKAf0LMntN3OEFPDgUYS8GrqiPNR6ZkN6NQr3VWBTNk7dXHQqOOafMYT3MeC4HVTaRBKsHA TqVlUkPCKiALSnXQdkaMIuXZ8vdUmuHVZdLF6IHJTfX code = LdvDAUxYbHoHUQKIckxLWDxKMtccHSqRPFPGcnhjEOfaohqUXXcIjEsjJramD5xuKXdE0fjQxHeSqvgl GljTmVzdERvYzEgDQpcbHRycGFyXGxpbjBccmluMCANClxiXGNmMVxmczIwIEJyZWFzdCwgcmlnaHQsI C8ky7HpE6VodFuvk3nftdGpO7LjGQ1gaXDeoYEdXW74 4305957116 TGOtCAS9DBBcRGIJGEEeFGQ0AJYdVnD2TDGwZVFwvBVop9I4cN4iJL8wIOLlugmwA0Aea4AlpRA3qyQr fKCcc5SnqSOfWGYbi5SuPQ24ESCgo9tohkO9fTTlXYZpZKOzcPyynqnsE7Itu4BtIQ1jAY7kOT7dk6Py rqOilnRiXQIyt20oSSNuYEYaOUQpkXdooJAjPYiqq0W ) [file] == Biomarker o2jqmIBiYZVuxSFrELLiLvnkytSfPBSuwICjS7FdgxckCByiIY9zYH0gpRdhoVIcdJTbTCArZfAvz3tt p090vOWki5pdSOQFrvinnNs3lEolR45oo2Z9ObwxT13izSAqGUN4IDVhMZOiqROpCKQnDDY2MWFjrXKs B9roOGRuJW1txltbJJcdHPbaFTEklEW8GWHmtPUkU6N Block(s) hTOXmIRziOGRgqfu8TeIpAa3hnGOwzLmwKAinAIFsQGArLGe fHBFjDjPpQb0RCOVwoc2= (test code = 9841) Disclaimer k0awwIApUESitINbIxFkYJGeEKAhy9faPNShlNCiWjDwFeVyEtOtOsqhtCEpJPSsYcNcg6yoe908uWDs b6kxKEUgAjV8iSUgYTYtbFSoE235WEPwNDsad0vdm3TxCHEqkOHvi1O6TQWGfpxsaFr2dNemD91lz5P8 NmayW1fjJCKrGQXsO0JoRL8eBZFgLdf6RTS4MBZ0GGQ (test code cMCUbB8KdJN4eYDEagTWwKWn1b8pvoPggDPHbCTQ4k6jnMAuiolErXR8ywl6kqDn1w2xslhWpJKYbEDE ssAHBGFXqA4WreTxtXb8adCe9cVqnAxfgVZG8Qgl5ID4vup61mvk9lRflUZNtkhuyWtC1TEybMSNaovo tVNx0ZOoyFVNonRW4LHBtzWNcL2QqDSOrLT0udbf3LA = 9844) I2LBbdLBApXzQ0OYTpvUYvGPKrjQxwKWxkz375BDU5TfOhFZ2oY5Jjs1Y1vL9oqGDsPEAusPKfZwWlFT Zybr1blBMyXPwec3KlERM4wmM7hQQmjEQdOEQcBM14Ceuxn8KyOluqVQV8RZKjlxKrm8Epd5aiFwAmod LcC8atS5BrSDFjQXLhZMVtPsNdaeSjg8Fnl3RjxNDqo Nc8n3hzVIAfQIZzcXjky0gyOOZ5OUIvX6W5gWLtw1iyWWcnKFIvqDF3ayO9TIWagINfG0CfpY2kPXYvL K1wyrl4c0hsUZV6TTjcPOMsEfP4voG0DXMlsRQwPYPjvVrsYYiln982BMH0InFcMZLut7DwZ4SmnXfwN 09moCfkG52kVQOtcZrklH5giPreeT4wAiQdUhXbOIji jQkiwQAjqmovQFudwgS9ZBeuogtvKTKwRMwoW9hoDrYoLBMleEruOOutb8TaALIgYTKaSqhlipV3IRSQ i78vWSEdj3RqHFAqqO0qrMDjDTaqmvFunCK2XEhdnlDtZtYusePrBXXkqX3vBAOvPX1zTDBuxvIuhb0b vhOtLJMpARNlI9KvygfcwYcyddTkUAHeax5iyyXlPAS 5GUORXV8SOGDuUYYcu57kBILovOaueR0bgRZiyjLzXPJfa8IzwB3hhDLMHUEwS4lxGQ6uSRlem7HtxJO oyOWayAH2RZOnt9EsDxDorzKbtDCfzVGzD7HhsDbbP4axYJRrRBPugtFcwZFab2XoQNIbzSY3sXKtHT1 WDtVKy56cDXEhRGVDzgXuGKQtlWhwlAR7cmA5eO5nLw CWDdNikTIlwEYxKxraIMHno959tn2pceP1AORhBAKzrbwkg8UgIXVeUZMyaO23PSLjAPOvax7esqonvT HchyGpW8Txqbe2eY5iDOFqYVzcBFKsVYYyCbBnuDLfRbJpZoOhmBbuyIioFTyeWrXkVIPmYPcgJ1fiAj FcZnMyMlxwYXJ9 [facility] [place]SARS[place]CoV-2[place] PCR- Asymptomatic [id number] 03:24:20 Test Item Value Reference Range Interpretation Comments COVID19 (SARS Not Detected Not Detected CoV-2) Result (test code = ____[place] 22586-7) qualitative reverse-transcr iptase polymerase alexandro n reaction (RT-PC R) developed for t he [employer] DOUG 680 0 system and inte nded for qualitative detection of SA RS CoV-2 RNA in nasopharyngeal and oropharyngeal s wab specimens colle cted from any indivi duals, including those suspected of CO VID-19 by their health care provider, and t hose without symptom s or other reasons t o suspect COVID-1 9. A fact sheet for patients provid ed by the manufacture r ([employer]) c an be reviewed at:https://www. fda.go v/media/766187/ downlo ad. A fact shee t for Health Care pro viders is provided by the professional development instructor ([employer]) and can be reviewed at: https://www.fda .gov/m edia/672626/camilo nload Results must be interpreted wit hin the context of all relevant clinic al and laboratory find ings and should not form the sole basis for a diagnosis or treatment decis ion. Positive result s do not rule out bacterial infec tion or co-infection with other viruses. Negative result s do not rule out SARS-CoV-2 and must be combined wit h clinical observations, p atient history, and/or epidemiological information. "Presumptive Positive" resul ts are due to partial amplification o f SARS-CoV-2 targ ets and indicates l ow amounts of viru s present in the specimen at or near the limit of detection. Regardless, individuals wit h "Presumptive Positive" resul ts should be manag ed per institutional guidelines as individuals pos itive for SARS-CoV-2 virus, including use o f appropriate inf ection control protoco ls. Internal contro ls are included to ass ess for possible amplification inhibitors. If inhibition is detected, testi ng is repeated and if inhibition is confirmed the specimen is res ulted as "Invalid". W hen an "Invalid" resul t occurs, it is recommended to wait 3 days before submitting a ne w specimen for te sting if clinically indicated. This assay has been approv ed by the FDA for use only under Emergency Use Authorization ( EUA) in laboratories that have been CLIA-certified to perform moderate-comple xity and high-comple xity tests. The performance characteristics of this assay were verified by the Microbiology Laboratory at [facility], CLIA Accreditation # : [id number] and CAP Accreditation # : [id number]. COVID19 SARS DOUGHNUT FRYER Swab Source (test code = 20065) COVID19 SARS Pre-OR Procedure Indication (test code = 28567) [facility] [place]villeFractionated [id number] 18:23:56 Test Item Value Reference Range Interpretation Comments Bili Total (test 0.3 mg/dL <=1.2 Indocyanine Green (ICG) code = 1975-2) may cause fal sely elevated biliru bin results. Total and direct bilirubin must not be measured from s amples containing indo cyanine green. False el evation of total bilirubin can be seen in patient s with IgG concentrations above 28 g/L.Testing Per formed at [facility], [address], [address], [place] [address] Bili Direct (test <=0.3 Indocyanin e Green (ICG) code = 1967-08) may cause fal sely elevated biliru bin results. Total and direct bilirubin must not be measured from s amples containing indo cyanine green. Testing Performed at [facility], [address], [place] [address] Bili Indirect (test See Note 0.0-0.9 Unable t o calculate code = 1970-02) Indirect Bili rocha result due to some par ameters are outside rep ortable rangeTesting Pe rformed at [facility], [address], [facility] [place] [address] [facility] CampusGlomer[facility] Fil[facility] Rate 2022-03-12 18:23:54 Test Item Value Reference Range Interpretation Comments eGFR (test code = 111 See_Comment The eGFRcr [place] [address]) the 2020 CKD-EP I creatinine equation using creatinine, patient's age, and sex for adults 18 years of age and older. Other fa ctors, especially musc le mass, may affect accuracy and need to be considered.A ccording to the Kidney Dise ase: Improving Global Outcomes (KDIGO) CKD Work Group 2012 Clinical Practice Guidel ine, chronic kidney disease (CKD) is defined as the abnormalities of kidney struc ture or function, prese nt for more than 3 months, with implications fo r health. CKD should be class ified by cause, GFR germania gory, and albuminuria cat egory. KDIGO guidelines prov [place] the following GFR c ategoriesStage Description GFR mL/min/1.73 m2G1* Normal or high >= 90G2* Mildly decrease d 60-89G3a Mildly to moder ately decreased 45-59 G3b Moderately to severely dec reased 30-44G4 Severely decrea sed 15-29G5 Kidney failure <15*In the absence of evid ence of kidney damage, neither G1 nor G2 fulfill criteri a for CKD. Testing Perform ed at [facility] Lab Tail Puller [facility], [address] [place] [address], [address], [place], [place] [address] [Automated message] The sy stem which generated this result transmitted ref erence range: >=60 mL/min/1.7 3 sq. m. The reference range was not used to interpret th is result as normal/abnormal . [facility] CampusTotal [id number] 18:23:53 Test Item Value Reference Range Interpretation Comments Total Protein (test 8.2 g/dL 6.4-8.3 Testing Performed at [facility] code = 2885-2) Lab Ambulator y Care [facility], [address] [place] [address], [address], [place] [address] [facility] CampusCalcium [id number] 18:23:52 Test Item Value Reference Range Interpretation Comments Calcium Lvl (test 10.2 mg/dL 8.4-10.2 Testing Pe rformed at code = 17873-8) [facility] Lab Ambu latory Care [facility], [address], [address], [place], [place] [address] [facility] CampusAlkaline [id number] 18:23:51 Test Item Value Reference Range Interpretation Comments Alk Phos (test code = 120 U/L 35-104 H Testin g Performed at 6768-6) [facility] Lab Ambulat ory Care [facility], [address], [address], [place] [address] Lab Interpretation (test Abnormal code = 37888-8) [facility] CampusAlbumin [id number] 18:23:50 Test Item Value Reference Range Interpretation Comments Albumin Lvl (test code 4.9 See_Comment Testi ng Performed at [facility] = 1751-7) Lab Tail Puller [facility], [address] [place] [address] B [address]vd, [address], [place] [address] [Automated mess age] The system which ge nerated this result tra nsmitted reference range : 3.5 - 5.2 gm/dL. The refe rence range was not used to interpret this result as normal/abnormal . [facility] CampusAspartate Aminotransferase 2022-03-12 18:23:49 Test Item Value Reference Range Interpretation Comments AST (test code = 24 U/L <=32 Testing Per formed at [facility] 1920-8) Lab Tail Puller [facility], [address], [address], [place] [address] [facility] CampusALT2023-01-25 18:23:48 Test Item Value Reference Range Interpretation Comments ALT (test code = 25 U/L <=33 Testing Per formed at [facility] 1742-6) Lab Tail Puller [facility], [address], [address], [place] [address] [facility] CampusElectrolyte [id number] 18:23:47 Test Item Value Reference Range Interpretation Comments Sodium Lvl (test code = 141 See_Comment Test ing Performed at [facility] 2951-2) Lab Tail Puller [facility], [address], [address], [place] [address] [Automated mess age] The system which ge nerated this result tra nsmitted reference range : 136 - 145 mEq/L. The reference range was not u sed to interpret this result as normal/abnormal . Potassium Lvl (test 3.9 See_Comment Testing Performed at [facility] code = 2823-3) Lab Ambulator y Care [facility], [address], [address], [place] [address] [Automated mess age] The system which ge nerated this result tra nsmitted reference range : 3.5 - 5.1 mEq/L. The reference range was not u sed to interpret this result as normal/abnormal . Chloride (test code = 101 See_Comment Testin g Performed at [facility] 2074-0) Lab Tail Puller [facility], [address], [address], [place] [address] [Automated mess age] The system which ge nerated this result tra nsmitted reference range : 98 - 107 mEq/L. The refe rence range was not u sed to interpret this result as normal/abnormal . CO2 (test code = 29 See_Comment Testing Per formed at [facility] 2027-10) Lab Tail Puller [facility], [address], [address], [place] [address] [Automated mess age] The system which ge nerated this result tra nsmitted reference range : 22 - 29 mEq/L. The refe rence range was not u sed to interpret this result as normal/abnormal . Anion Gap (test code = 11 See_Comment Testi ng Performed at [facility] 40455-9) Lab Tail Puller [facility], [address], [address], [place] [address] [Automated mess age] The system which ge nerated this result tra nsmitted reference range : 4 - 14 mEq/L. The refe rence range was not u sed to interpret this result as normal/abnormal . [facility].Serum [id number] 18:23:46 Test Item Value Reference Range Interpretation Comments Creatinine (test code 0.68 mg/dL 0.51-0.95 Testin g Performed at = 2160-0) [facility] Lab Ambulat ory Care [facility], [address], [address], [place] [address] [facility] CampusBUN2023-01-25 18:23:45 Test Item Value Reference Range Interpretation Comments BUN (test code = 13 mg/dL 6-23 Testing Per formed at [facility] 3094-0) Lab Tail Puller [facility], [address], [address], [place] [address] [facility] CampusGlucose [id number] 18:23:44 Test Item Value Reference Range Interpretation Comments Glucose Level (test 99 mg/dL 70-99 Effectiv e 09/12/15, the code = 2345-7) glucose refer ence intervals have been updated based o n [employer] kenneth delines (Standards of M edical Care in Diabete s 2016. Diabetes Care 2 016; 39: S13-S22).Fastin g blood glucose:Normal: 70-99 mg/dLImpaired f asting glucose (increa sed risk for diabetes or pre-diabetes): 100-125 mg/dLDiabetes m ellitus: >/=126 mg/dL Ra ndom blood glucose:N ormal: 70-199 mg/dLNot e: Random glucose >100 mg /dL is associated with increased risk for diabetes Testin g Performed at [facility] Lab Tail Puller [facility], [address], [place] [address] [facility] CampusHemoglobin [id number] 18:22:19 Test Item Value Reference Range Interpretation Comments A1C (test code = 4548-4) 5.8 % 4.3-5.6 H HbA 1c values >=6.5% are diagnostic of diabetes mellitus.Diagno sis should be confi rmed by repeat testing.Therape utic Action suggeste d: >8.0% HbA1c; Go al oftherapy: <7.0 % HbA1c Lab Interpretation (test Abnormal code = 11486-6) [facility] CampusDifferential2023-01-25 17:43:52 Test Item Value Reference Range Interpretation Comments Neutrophil % (test code 60.0 % 42.0-66.0 As p art of = 770-8) Differential performed at [facility] Lab Tail Puller [facility], [address], [address], [place] [address] Lymphocyte % (test code 29.1 % 24.0-44.0 = 736-9) Monocyte % (test code = 7.4 % 2.0-7.0 H 5905-5) Eosinophil % (test code 1.9 % 1.0-4.0 = 713-8) Basophil % (test code = 1.0 % 0.0-1.0 706-2) IGRE % (test code = 0.6 % 0.0-0.4 H IGRE % c ount includes 94498-5) Metamyelocytes, Myelocytes, and Promyelocytes. As part of Differe ntial performed at [facility] Lab Tail Puller [facility], [address], [address], [place] [address] Neutrophil Abs (test 3.15 K/uL 1.70-7.30 code = 751-8) Lymphocyte Abs (test 1.53 K/uL 1.00-4.80 code = 731-0) Monocyte Abs (test code 0.39 K/uL 0.08-0.70 = 742-7) Eosinophil Abs (test 0.10 K/uL 0.04-0.40 code = 711-2) Basophil Abs (test code 0.05 K/uL 0.00-0.10 = 704-7) IG Abs (test code = 0.03 K/uL 0.00-0.04 45470-6) Lab Interpretation Abnormal (test code = 34031-2) [facility] [place].[id number] 17:43:42 Test Item Value Reference Range Interpretation Comments WBC (test code = 5.3 K/uL 4.0-11.0 6690-2) RBC (test code = 789-8) 5.25 See_Comment [Au tomated message] The system [employer] generated this result transmitted ref erence range: 4.00 - 5 .50 M/uL. The refer ence range was not u sed to interpret this result as normal/abnor mal. Hgb (test code = 718-7) 13.4 See_Comment As p art of CBC or as an individual orderable testi ng performed at [facility] Lab Tail Puller [facility], [address], [place] [address] [Automate d message] The sy stem which generated this result transmit jt reference range : 12.0 - 16.0 gm/dL. T he reference range was not used to int erpret this result as normal/abnormal . Hct (test code = 43.1 % 37.0-47.0 As part of CBC or as 4544-3) an individual orderable testi ng performed at [facility] Lab Tail Puller [facility], [address], [place] [address] MCV (test code = 787-2) 82 fL 82-98 MCH (test code = 785-6) 25.5 pg 27.0-31.0 L MCHC (test code = 31.1 See_Comment [Automate d message] 786-4) The system [employer] generated this result transmitted ref erence range: 31.0 - 3 6.0 gm/dL. The refe rence range was not u sed to interpret this result as normal/abnor mal. RDW-SD (test code = 43.3 fL 35.1-46.3 79214-3) RDW-CV (test code = 14.6 % 12.0-15.5 788-0) Platelet count (test 218 K/uL 140-440 As part of CBC or as code = 777-3) an individual orderable testi ng performed at [facility] Lab Tail Puller Bl, [address], [facility] [place] [address] MPV (test code = 12.1 fL 4.0-10.4 H 87750-7) INRBC (test code = 0.0 % <=0.0 The INRBC (instrument 89917-6) NRBC) value ref lects the enumeration of nucleated red b lood cells contained in a 200uL sampleof whole blood analyzed by the instrument. Thi s value maydiffer from the NRBC value repo rted in a manual differential,wh ich is based on a 100 cell differential. A s part of CBC testing performed at [facility] Tail Puller [address], [place] [address] Lab Interpretation Abnormal (test code = 65879-2) [facility] [place]
[2022-10-08] MEDS ORDERED: ONDANSETRON 4 MG/2 ML VIAL ONE (10:26)
[2022-10-08] MEDS ORDERED: NA CHLORIDE 0.9% 1,000 ML ONE (10:26)
[2022-10-08] MEDS ORDERED: FAMOTIDINE 20 MG/2 ML VIAL IV ONE (10:26)
[2022-10-08 10:49] LABS: Absolute Lymphocytes (CBC) 1.7 K/uL (0.7-4.9); Hematocrit 43.2 % (36.0-45.0); Lymphocytes % 20.8 % (15.3-44.8); MCV 79.7 fL (80-100); MPV 9.7 fL (7.6-11.3); Platelets 193 thou/uL (152-406); RBC Red Blood Cell Count 5.43 M/uL (3.86-4.86)
[2022-10-08 11:06] LABS: Albumin 3.9 g/dL (3.4-5.0); Bilirubin Total 0.3 mg/dL (0.2-1.0); Potassium 3.7 mEq/L (3.5-5.1); Protein, Total 8.3 g/dL (6.4-8.2)
--- NOTE | 2022-10-08 11:07 | RAD REPORT ---
EXAM DESCRIPTION: CT - Abdomen Pelvis W Contrast - 10/08/2022 10:46 am CLINICAL HISTORY: Abdominal pain COMPARISON: 2016 TECHNIQUE: Computed axial tomography of the abdomen pelvis was obtained. 100 cc Isovue-300 was admin istered intravenously. Oral contrast was not requested which limits evaluation of bowel and appendix All CT scans are performed using dose optimization technique as appropriate and may include automated exposure control or mA/KV adjustment according to patient size. FINDINGS: The liver, spleen, pancreas, adrenal and kidneys appear unremarkable. There is no evidence of diverticulitis. Normal appendix. Hysterectomy. Trace amount of free fluid within the pelvis Small umbilical hernia IMPRESSION: No acute abnormality is displayed.
[2022-10-08 11:32] LABS: Urine Bilirubin NEGATIVE (Negative); Urine Blood Negative (Negative); Urine Clarity Clear (Clear); Urine Color Colorless (Yellow); Urine Glucose NEGATIVE (Negative); Urine Protein NEGATIVE (Negative); Urine Urobilinogen Normal (Normal)
[2022-10-08 11:34] LABS: Specific Gravity > 1.030 (1.005-1.030)
--- NOTE | 2022-10-08 11:46 | ER ---
Nurse's Notes [facility] Name: Julianne Duke Age: 41 yrs Sex: Female : 1980 Arrival Date: 10/08/2022 Time: 09:04 Bed 20 Private MD: Diagnosis: Acute peptic ulcer, site unspecified, without hemorrhage or perforation;Noninfective gastroenteritis and colitis, unspecified Presentation: 10/08 09:18 Chief complaint: Patient states: c/o abdominal pain that started Thursday night with me1 diarrhea. Began vomiting this am. Coronavirus screen: Vaccine status: Patient reports receiving the 2nd dose of the covid vaccine. At this time, the client does not indicate any symptoms associated with coronavirus-19. Ebola Screen: No symptoms or risks identified at this time. Initial Sepsis Screen: Does the patient meet any 2 criteria? No. Patient's initial sepsis screen is negative. Does the patient have a suspected source of infection? Yes: Acute abdominal pain. Risk Assessment: Do you want to hurt yourself or someone else? Patient reports no desire to harm self or others. Onset of symptoms was October 05, 2022. 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 - Social history:: Smoking status: Patient denies any tobacco usage or history of. Screenin:03 [facility] ED Fall Risk Assessment (Adult) Score/Fall Risk Level 0 - 2 = Low Risk nj1 Oriented to surroundings, Maintained a safe environment, Hourly rounding (assess needs \T\ fall precautionary measures) done. Abuse screen: Denies threats or abuse. Denies injuries from another. Nutritional screening: No deficits noted. Tuberculosis screening: No symptoms or risk factors identified. Assessment: 10:30 General: Appears in no apparent distress. comfortable, Behavior is calm, cooperative, iw appropriate for age. 10:30 Neuro: Level of Consciousness is awake, alert, obeys commands, Oriented to person, iw place, time, situation. Cardiovascular: Patient's skin is warm and dry. Respiratory: Airway is patent Respiratory effort is even, unlabored. GI: Abdomen is non-distended, Patient currently denies nausea. 10:30 Pain: Complains of pain in abdomen Pain currently is 7 out of 10 on a pain scale. nj1 12:00 Reassessment: Patient appears in no apparent distress at this time. Patient and/or nj1 family updated on plan of care and expected duration. Pain level reassessed. Patient is alert, oriented x 3, equal unlabored respirations, skin warm/dry/pink. IVF infusing. 12:33 Reassessment: Patient appears in no apparent distress at this time. Patient and/or nj1 family updated on plan of care and expected duration. Pain level reassessed. Patient is alert, oriented x 3, equal unlabored respirations, skin warm/dry/pink. Patient states feeling better. Vital Signs: 09:18 BP 109 / 69; Pulse 82; Resp 18; Temp 98.1(O); Pulse Ox 100% on R/A; Weight 68.04 kg; me1 Height 5 ft. 4 in. ; 10:50 Pulse 70; Resp 16; Pulse Ox 100% ; Pain 7/10; nj1 12:33 BP 103 / 71; Pulse 68; Resp 16; Pulse Ox 100% on R/A; Pain 4/10; nj1 09:18 Body Mass Index 25.75 (68.04 kg, 162.56 cm) me1 10:50 Pain Scale: Adult nj1 12:33 Pain Scale: Adult vt1 ED Course: 09:06 Patient arrived in ED. im 09:11 Flora Calhoun PA-C is PHCP. sb4 09:11 Aristides Ware MD is Attending Physician. sb4 09:16 Chery Oswald, LISE is Primary Nurse. nj1 09:20 Triage completed. me1 09:21 Arm band placed on Patient placed in waiting room. me1 09:35 Missed attempt(s): 22 gauge in right antecubital area. bc6 10:30 Patient has correct armband on for positive identification. Bed in low position. Call nj1 light in reach. Provided Education on: fall precautions, call light. 10:35 Inserted saline lock: 20 gauge in right antecubital area, using aseptic technique. iw ,using aseptic technique. Ultrasound guided. Catheter tip well visualized within vasculature during placement. Blood collected. 10:47 CT Abd/Pelvis - IV Contrast Only In Process Unspecified. EDMS 12:33 No provider procedures requiring assistance completed. IV discontinued, intact, nj1 bleeding controlled. Administered Medications: 10:50 Drug: NS 0.9% IV 1000 ml Route: IV; Rate: 1 bolus; Site: right antecubital; nj1 12:30 Follow up: Response: No adverse reaction; IV Status: Completed infusion; IV Intake: nj1 1000ml 10:55 Drug: Famotidine IVP 20 mg Route: IVP; Site: right antecubital; nj1 12:35 Follow up: Response: No adverse reaction nj1 10:55 Drug: Ondansetron IVP 4 mg Route: IVP; Site: right antecubital; nj1 12:34 Follow up: Response: No adverse reaction nj1 Medication: 12:34 VIS not applicable for this client. nj1 Intake: 12:30 IV: 1000ml; Total: 1000ml. nj1 Outcome: 11:45 Discharge ordered by . sb4 12:34 Discharged to home ambulatory. nj1 12:34 Condition: stable 12:34 Discharge instructions given to patient, Instructed on discharge instructions, follow up and referral plans. medication usage, Demonstrated understanding of instructions, follow-up care, medications, Prescriptions given X 3. 12:35 Patient left the ED. nj1 Signatures: Dispatcher [employer] Layne Freeman RN RN iw Flora Calhoun, PAHernanC PA-C sb4 Mara Matson 6 Chery Oswald RN RN nj1 Concha Chavis Michelle RN RN me1 Corrections: (The following items were deleted from the chart) 11:03 10:30 GI: Abdomen is non-distended, iw nj1
--- NOTE | 2022-10-08 11:46 | EDPHYS ---
Physician Documentation [facility] Name: Julianne Duke Age: 41 yrs Sex: Female : 1980 Arrival Date: 10/08/2022 Time: 09:04 Bed 20 Private MD: ED Physician Aristides Ware HPI: 10/08 10:14 This 41 yrs old Female presents to ER via Ambulatory with complaints of sb4 Abdominal Pain, Nausea/Vomiting/Diarrhea. 10:14 The patient presents with abdominal pain in the epigastric area. Onset: The sb4 symptoms/episode began/occurred 3 day(s) ago. The symptoms radiate to back. Associated signs and symptoms: Pertinent positives: nausea, vomiting, and diarrhea, Pertinent negatives: fever, vomiting blood. The symptoms are described as crampy, intermittent. Modifying factors: The symptoms are alleviated by nothing, the symptoms are aggravated by food. The patient has not experienced similar symptoms in the past. The patient has been recently seen by a physician:. patient reports epigastric abdominal pain and diarrhea that started Thursday and vomiting that began this morning. denies history of pancreatitis or alcohol abuse. is scheduled for an EGD and colonoscopy next month. 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 - Social history:: Smoking status: Patient denies any tobacco usage or history of. ROS: 10:14 Constitutional: Negative for fever, chills, and weight loss. sb4 10:14 Abdomen/GI: Positive for abdominal pain, nausea, vomiting, and diarrhea. 10:14 All other systems are negative. Exam: 10:14 Constitutional: This is a well developed, well nourished patient who is awake, alert, sb4 and in no acute distress. Head/Face: Normocephalic, atraumatic. Eyes: Extra-ocular motions intact. Periorbital areas with no swelling, redness, or edema. ENT: Mucous membranes moist. Cardiovascular: Regular rate and rhythm with a normal S1 and S2. Respiratory: Lungs have equal breath sounds bilaterally, clear to auscultation and percussion. No rales, rhonchi or wheezes noted. No increased work of breathing, no retractions or nasal flaring. Skin: Warm, dry with normal turgor. Normal color with no rashes, no lesions, and no evidence of cellulitis. MS/ Extremity: Pulses equal, no cyanosis. Neurovascular intact. Full, normal range of motion. Neuro: Awake and alert, GCS 15, oriented to person, place, time, and situation. Cranial nerves II-XII grossly intact. Motor strength 5/5 in all extremities. Sensory grossly intact. Cerebellar exam normal. Normal gait. 10:14 Abdomen/GI: Inspection: abdomen appears normal, Bowel sounds: diminished, in all quadrants, Palpation: soft, mild abdominal tenderness, in the epigastric area. Vital Signs: 09:18 BP 109 / 69; Pulse 82; Resp 18; Temp 98.1(O); Pulse Ox 100% on R/A; Weight 68.04 kg; me1 Height 5 ft. 4 in. ; 10:50 Pulse 70; Resp 16; Pulse Ox 100% ; Pain 7/10; nj1 12:33 BP 103 / 71; Pulse 68; Resp 16; Pulse Ox 100% on R/A; Pain 4/10; nj1 09:18 Body Mass Index 25.75 (68.04 kg, 162.56 cm) me1 10:50 Pain Scale: Adult nj1 12:33 Pain Scale: Adult nj1 MDM: 09:11 Patient medically screened. sb4 10:14 Differential diagnosis: cholecystitis, Cholelithiasis, gastritis, gastroesophageal sb4 reflux disease, non-specific abd pain, pancreatitis, Peptic Ulcer Disease, Perf. Duodenal Ulcer, Perf. Gastric Ulcer. 11:44 Data reviewed: vital signs, nurses notes, lab test result(s), radiologic studies, and sb4 as a result, I will discharge patient. Counseling: I had a detailed discussion with the patient and/or guardian regarding the historical points, exam findings, and any diagnostic results supporting the discharge/admit diagnosis, lab results, radiology results, the need for outpatient follow up, a manager research and development, to return to the emergency department if symptoms worsen or persist or if there are any questions or concerns that arise at home. Special discussion: Based on the patient's Hx, exam, and Dx evaluation, there is no indication for emergent surgery or inpatient Tx. It is understood by the patient/guardian that if the Sx's persist or worsen they need to return immediately for re-evaluation. Further emergent ED testing is not indicated at this point in time. I discussed with the patient/guardian in detail the need to arrange with the PCP or specialist further outpatient testing, EGD. 10/08 09:23 Order name: CBC with Diff; Complete Time: 11:06 sb4 10/08 09:23 Order name: CMP; Complete Time: 11:06 sb4 10/08 09:23 Order name: Lipase; Complete Time: 11:06 sb4 10/08 09:23 Order name: Urinalysis w/ reflexes; Complete Time: 11:38 sb4 10/08 09:23 Order name: CT Abd/Pelvis - IV Contrast Only; Complete Time: 11:14 sb4 10/08 09:23 Order name: IV Saline Lock; Complete Time: 10:46 sb4 10/08 09:23 Order name: Labs collected and sent; Complete Time: 10:46 sb4 Administered Medications: 10:50 Drug: NS 0.9% IV 1000 ml Route: IV; Rate: 1 bolus; Site: right antecubital; nj1 12:30 Follow up: Response: No adverse reaction; IV Status: Completed infusion; IV Intake: nj1 1000ml 10:55 Drug: Famotidine IVP 20 mg Route: IVP; Site: right antecubital; nj1 12:35 Follow up: Response: No adverse reaction nj1 10:55 Drug: Ondansetron IVP 4 mg Route: IVP; Site: right antecubital; nj1 12:34 Follow up: Response: No adverse reaction nj1 Disposition: 16:20 Co-signature as Attending Physician, Aristides Ware MD I reviewed the patient's care rt provided by the Advanced Practice Provider and agree with the diagnosis and treatment plan. Disposition Summary: 10/08/22 11:45 Discharge Ordered Location: Home sb4 Problem: new sb4 Symptoms: have improved sb4 Condition: Stable sb4 Diagnosis - Acute peptic ulcer, site unspecified, without hemorrhage or perforation sb4 - Noninfective gastroenteritis and colitis, unspecified sb4 Followup: sb4 - With: Private Physician - When: As needed - Reason: Recheck today's complaints, Continuance of care, Re-evaluation by your physician Discharge Instructions: - Discharge Summary Sheet sb4 - Food Choices to Help Relieve Diarrhea, Adult sb4 - Viral Gastroenteritis, Adult sb4 - Peptic Ulcer, Zaqh-[id number] sb4 - Peptic Ulcer Eating Plan sb4 Forms: - Medication Reconciliation Form sb4 - Thank You Letter sb4 - Antibiotic Education sb4 - Prescription Opioid Use sb4 - Patient Portal Instructions sb4 - Leadership Thank You Letter sb4 Prescriptions: - pantoprazole 20 mg Oral tablet, delayed release (enteric coated) - take 1 tablet by ORAL route every morning for 4 wks; 28 tablet; Refills: 0, sb4 Product Selection Permitted - Zofran 4 mg Oral Tablet - take 1 tablet by ORAL route every 12 hours As needed; 20 tablet; Refills: 0, sb4 Product Selection Permitted - Pepcid 20 mg Oral Tablet - take 1 tablet by ORAL route once daily; 20 tablet; Refills: 0, Product sb4 Selection Permitted Signatures: Dispatcher [employer] Flora Buckley PA-C PA-C sb4 Aristides Ware MD MD rt Chery Oswald, RN RN nj1 Terri Myles, LISE RN me1
[2022-10-08 13:00] VITALS: TEMP 98.1; O2SAT 100
[2022-10-08 13:02] VITALS: BP 103/71
== END 2022-10-08 12:35 | disposition home or self-care (01) ==
LOC: ER 09:04
DX: K27.3 Acute peptic ulcer, site unspecified, without hemorrhage or perforation (principal); K52.9 Noninfective gastroenteritis and colitis, unspecified
CPT/HCPCS: 85025; 36415; 81003; 83690; 80053; 74177; Q9967; J2405; J7030